=== PATIENT | male | born 1950 | race American Indian/Alaskan Native ===

== ENCOUNTER 2018-06-10 19:19 | Inpatient (IN) | payer MEDICARE ==
[2018-06-10] MEDS ORDERED: NITROSTAT SL ONE ×2 (19:42→19:43)
[2018-06-10] MEDS ORDERED: XYLOCAINE 1% MPF 5 mL INFILTRATI ONE (19:52)
[2018-06-10] MEDS ORDERED: VANCOMYCIN 1,250 MG in NACL 0.9% 500 ML 500 ML IV ONE (19:52)
[2018-06-10] MEDS ORDERED: ROCEPHIN 2,000 MG in NACL 0.9% 50 ML IV STA (19:52)
--- NOTE | 2018-06-10 19:54 | Emergency Department Report ---
ED General Adult HPI - General Chief complaint: Dyspnea/Respdistress Stated complaint: SOB Time Seen by Provider: 06/10/18 19:24 Source: patient, family, RN notes reviewed Limitations: Physical Limitation, Other (patient is a poor historian) - History of Present Illness Initial comments: This is a 67-year-old gentleman who is not known to this provider previously. The patient is brought to the hospital by family for complaint of painless respiratory distress which started today. Apparently, patient was admitted to [facility] in the past month, in [facility], and apparently had a complicated hospital course, including myocardial infarction with stent deployment, currently on brilinta and eliquis, and also had an indwelling PICC line, and was apparently receiving ceftriaxone. We're currently attempting to obtain those medical records. The shortness of breath is constant, does not radiate anywhere, is painless, worsens with physical exertion, and decreases with rest. Patient was started on BiPAP therapy in the emergency room, which appeared to improve his symptoms. He denied headache, neck pain, chest pain, abdominal pain, urinary symptoms, and requested ice chips while on the BiPAP. -: Sudden Severity scale (0 -10): 0 Consistency: constant Improves with: rest Worsens with: movement Associated Symptoms: cough, loss of appetite, shortness of breath, weakness. denies: chest pain - Related Data Home Medications Medication Instructions Recorded Confirmed Last Taken Apixaban [Eliquis] 5 mg PO BID 06/10/18 06/10/18 Unknown Aspirin 1 tab PO DAILY 06/10/18 06/10/18 Unknown Atorvastatin Calcium 80 mg PO DAILY 06/10/18 06/10/18 Unknown Budesoni/Formoterol 80-4.5(Nf) 1 puff IN Q8HR 06/10/18 06/10/18 Unknown [Symbicort 80-4.5 (Nf)] Carvedilol [Coreg] 1 tab PO BID 06/10/18 06/10/18 Unknown Escitalopram [Lexapro] 10 mg PO HS 06/10/18 06/10/18 Unknown Esomeprazole Magnesium [Nexium 1 tab PO DAILY 06/10/18 06/10/18 Unknown 24Hr] Oxymetazoline 0.05% [Afrin] 0 spray NS Q8HR PRN 06/10/18 06/10/18 Unknown Ticagrelor [Brilinta] 90 mg PO BID 06/10/18 06/10/18 Unknown Allergies Allergy/AdvReac Type Severity Reaction Status Date / Time amoxicillin Allergy Unknown Verified 06/10/18 22:43 Penicillins Allergy Unknown Verified 06/10/18 22:43 tetracycline Allergy Unknown Verified 06/10/18 19:32 ED Review of Systems ROS: Stated complaint: SOB Other details as noted in HPI Constitutional: malaise, weakness Eyes: denies: vision change ENT: denies: epistaxis Respiratory: shortness of breath Cardiovascular: dyspnea on exertion Gastrointestinal: denies: vomiting Genitourinary: denies: dysuria Musculoskeletal: denies: arthralgia Skin: denies: lesions Neurological: weakness Psychiatric: anxiety ED Past Medical Hx - Past Medical History Hx CVA: Yes Hx Heart Attack/AMI: Yes - Social History Smoking Status: Former Smoker Substance Use Type: None - Medications Home Medications: Home Medications Medication Instructions Recorded Confirmed Last Taken Type Apixaban [Eliquis] 5 mg PO BID 06/10/18 06/10/18 Unknown History Aspirin 1 tab PO DAILY 06/10/18 06/10/18 Unknown History Atorvastatin Calcium 80 mg PO DAILY 06/10/18 06/10/18 Unknown History Budesoni/Formoterol 80-4.5(Nf) 1 puff IN Q8HR 06/10/18 06/10/18 Unknown History [Symbicort 80-4.5 (Nf)] Carvedilol [Coreg] 1 tab PO BID 06/10/18 06/10/18 Unknown History Escitalopram [Lexapro] 10 mg PO HS 06/10/18 06/10/18 Unknown History Esomeprazole Magnesium [Nexium 1 tab PO DAILY 06/10/18 06/10/18 Unknown History 24Hr] Oxymetazoline 0.05% [Afrin] 0 spray NS Q8HR PRN 06/10/18 06/10/18 Unknown History Ticagrelor [Brilinta] 90 mg PO BID 06/10/18 06/10/18 Unknown History ED Physical Exam - General Limitations: Altered Mental Status General appearance: anxious, in distress - Head Head exam: Present: atraumatic, normocephalic - Eye Eye exam: Present: normal appearance, EOMI. Absent: nystagmus - ENT ENT exam: Present: mucous membranes dry - Neck Neck exam: Present: normal inspection - Respiratory Respiratory exam: Present: respiratory distress, wheezes, rhonchi, accessory muscle use - Cardiovascular Cardiovascular Exam: Present: normal rhythm, tachycardia, normal heart sounds. Absent: systolic murmur, diastolic murmur, rubs, gallop - GI/Abdominal GI/Abdominal exam: Present: soft. Absent: distended, tenderness, guarding, rebound, rigid, pulsatile mass - Rectal Rectal exam: Present: deferred - Extremities Exam Extremities exam: Present: normal inspection, full ROM, pedal edema (1+ edema), other (2+ pulses noted in the bilateral upper, lower extremities. Compartments soft. No long bony tenderness. The pelvis is stable.). Absent: calf tenderness - Back Exam Back exam: Present: normal inspection, full ROM. Absent: paraspinal tenderness, vertebral tenderness - Neurological Exam Neurological exam: Present: alert, other (Extraocular movements intact. Tongue midline. No facial droop. Facial sensation intact to light touch in the V1, V2, V3 distribution bilaterally. 5 and 5 strength in 4 extremities.. Sensation is intact to light touch in 4 extremities.). Absent: motor sensory deficit - Psychiatric Psychiatric exam: Present: anxious - Skin Skin exam: Present: warm, dry, intact, normal color. Absent: rash ED Course Vital Signs 06/10/18 06/10/18 06/10/18 19:32 19:40 19:44 Pulse Rate 124 H 82 Respiratory 24 42 H 53 H Rate Blood Pressure 136/98 142/79 O2 Sat by Pulse 91 90 94 Oximetry 06/10/18 06/10/18 06/10/18 19:45 20:36 20:45 Pulse Rate 136 H 115 H 113 H Respiratory 52 H 24 43 H Rate Blood Pressure 136/84 136/84 136/84 O2 Sat by Pulse 69 L 100 98 Oximetry 06/10/18 06/10/18 06/10/18 21:45 22:01 23:01 Pulse Rate 105 H 110 H 98 H Respiratory 37 H 30 H 34 H Rate Blood Pressure 136/84 136/84 136/84 O2 Sat by Pulse 95 96 97 Oximetry 06/11/18 00:01 Pulse Rate 99 H Respiratory 21 Rate Blood Pressure 136/84 O2 Sat by Pulse 99 Oximetry - Reevaluation(s) Reevaluation #1: 02/19/19 20:21 Differential diagnosis, including but not limited to: Pneumonia, cardiogenic shock, distant heart failure, respiratory failure Assessment and plan: 67-year-old gentleman with respiratory failure requiring positive pressure ventilation. Does not have significant JVD, and is saturating in the mid to high 90s on IPAP therapy. Doubt pulmonary embolus given that he is taking systemic anticoagulation. Attempting to obtain old medical records. Rectal temperature is pending at this time. Patient will be treated empirically with vancomycin and ceftriaxone. He will require admission to the medical service. We will give a trial bolus of 500 mL of normal saline, and then reassess. Recommend admission to the hospital. Reevaluation #2: 06/10/18 20:50 Heart rate 112. Work of breathing appears to be much improved. Laboratory studies pending. Reevaluation #3: 06/10/18 22:11 The patient is reevaluated multiple times while in the department. He appears to be much more comfortable on BiPAP therapy. Tachycardia improving. Laboratory studies indicate lactic acidosis, likely secondary to his increased and profound work of breathing upon initial presentation. He is also found to be hyponatremic, with an elevated proBNP, with an anion gap acidosis. From a global perspective, the patient appears to be volume depleted, I suspect that he may have hypovolemic hyponatremia. His elevated proBNP is reviewed and appreciated, crepitus likely secondary to his underlying pneumonia. I do not clinically suspect an acute congestive heart fire exacerbation at this point in time. The patient also has an elevated troponin, likely secondary to his recent cardiac event, as well as the physiologic strain from his presumed pneumonia. I suspect that the patient has sepsis secondary to pneumonia. Old medical records are obtained from his recent hospital, indicate history of inferior wall myocardial infarction, stent deployment, deployment of aortic balloon pump, ICU placement with ICU delirium, which subsequently resolved, history of stroke, and discharged. Dr Brady to admit to the medical service D/W Dr Kirkpatrick of cardiology, who will follow in consultation. Neither of us believe that heparin is indicated at this point in time, as we do not clinically suspect an acute occlusion of the patient's stents. Repeat EKG is reviewed and appreciated, low voltage, tachycardic, not consistent with ST elevation myocardial infarction. Reevaluation #4: 06/11/18 00:35 Repeat laboratory studies indicate a metabolic improvement. Patient has downtrending troponin and downtrending lactic acid. Patient appears very comfortable on BiPAP therapy. ED Medical Decision Making - Lab Data Result diagrams: 06/10/18 20:24 06/10/18 23:36 Vital Signs 06/10/18 19:32 Pulse Rate 124 H Respiratory 24 Rate Blood Pressure 136/98 O2 Sat by Pulse 91 Oximetry - EKG Data -: EKG Interpreted by Wy Rate: tachycardia - EKG Data When compared to previous EKG there are: previous EKG unavailable 06/10/18 20:23 Tachycardia, extreme right axis deviation, low voltage, motion artifact, appears to be a sinus rhythm, not consistent with ST elevation myocardial infarction. - Radiology Data Radiology results: report reviewed, image reviewed Referring Physician: DHAVAL MUNOZ Patient Name: CASSIDY BRANDON Date of : 1950 Sex: Male Report Date: 2018-06-10 Report Status: Finalized Findings [facility] [address] [place] [address] XRay Report Signed Patient: CASSIDY BRANDON MR#: [id number] : 1950 Acct:[id number] Age/Sex: 67 / M ADM Date: 06/10/18 Loc: ED Attending Dr: Ordering Physician: DHAVAL MUNOZ MD Date of Service: 06/10/18 Procedure(s): XR chest 1V ap Accession Number(s): [id number] cc: DHAVAL MUNOZ MD Fluoro Time In Minutes: FINAL REPORT EXAM: XR CHEST 1V AP HISTORY: sob TECHNIQUE: Chest single AP PRIORS: None. FINDINGS: There is streaky and patchy increased opacity within the right lower lobe distribution. Cardiac silhouette is prominent size. Pulmonary vasculature is unremarkable. No pleural fluid collection seen. No evidence for pneumothorax. IMPRESSION: Right lower lobe infiltrates suspicious for pneumonia Transcribed By: STANLEY Dictated By: MICHAEL ALDANA MD Electronically Authenticated By: MICHAEL ALDANA MD Signed Date/Time: 06/10/182012 Critical Care Time: Yes Critical care time in (mins) excluding proc time.: 35 Critical care attestation.: If time is entered above; I have spent that time in minutes in the direct care of this critically ill patient, excluding procedure time. ED Disposition Clinical Impression: Respiratory failure, History of coronary artery disease Disposition: [id number] OP ADMIT IP TO THIS HOSP Is pt being admited?: Yes Does the pt Need Aspirin: Yes Condition: Critical
[2018-06-10] MEDS ORDERED: VERSED IV NR (20:00)
[2018-06-10] MEDS ORDERED: VANCOMYCIN 1,750 MG in NACL 0.9% 500 ML 500 ML IV ONE (20:00)
--- NOTE | 2018-06-10 20:13 | XRay Report ---
FINAL REPORT EXAM: XR CHEST 1V AP HISTORY: sob TECHNIQUE: Chest single AP PRIORS: None. FINDINGS: There is streaky and patchy increased opacity within the right lower lobe distribution. Cardiac silho uette is prominent size. Pulmonary vasculature is unremarkable. No pleural fluid collection seen. No evidence for pneumothorax. IMPRESSION: Right lower lobe infiltrates suspicious for pneumonia
[2018-06-10] MEDS ORDERED: NACL 0.9% 500 ML 500 ML IV ONE (20:20)
[2018-06-10] MEDS: ROCEPHIN/NS 2 GM/100 ML 2 GM/100 ML BAG IV ONE ×2 (20:30→21:12)
[2018-06-10 20:47] LABS: Basophils # (Auto) 0.1 K/mm3 (0.0-0.1); Basophils % (Auto) 0.8 % (0.0-1.8); Eosinophils # (Auto) 0.1 K/mm3 (0.0-0.4); Eosinophils % (Auto) 1.3 % (0.0-4.3); Hematocrit 34.8 % (35.5-45.6); Hemoglobin 11.5 gm/dl (11.8-15.2); Lymphocytes # (Auto) 2.1 K/mm3 (1.2-5.4); Lymphocytes % (Auto) 21.6 % (13.4-35.0); Mean Corpuscular HGB Conc 33 % (32-34); Mean Corpuscular Volume 98 fl (84-94); Platelet Count 598 K/mm3 (140-440); Red Blood Count 3.55 M/mm3 (3.65-5.03); Red Cell Distribution Width 14.6 % (13.2-15.2)
[2018-06-10] MEDS ORDERED: NACL 0.9% 250ML 250 ML IV ONE (20:51)
[2018-06-10] MEDS ORDERED: NACL 0.9% 1000 ML 2,000 ML IV ONE (20:51)
[2018-06-10 20:54] LABS: INR 1.71 (0.87-1.13)
[2018-06-10 20:55] LABS: Partial Thromboplastin Time 23.2 Sec. (24.2-36.6)
[2018-06-10 21:14] LABS: Albumin 2.9 g/dL (3.9-5); Calcium 8.3 mg/dL (8.4-10.2)
[2018-06-10] MEDS ORDERED: BABY ASPIRIN PO ONE (22:14)
[2018-06-10] MEDS ORDERED: SODIUM CHLORIDE FLUSH SYRINGE 10 ML IV PRN (22:27)
[2018-06-10] MEDS ORDERED: ZOFRAN IV PRN (22:27)
[2018-06-10] MEDS ORDERED: TYLENOL PO PRN (22:27)
[2018-06-10] MEDS ORDERED: D50W (25GM) Syringe IV PRN (22:27)
[2018-06-10 22:32] LABS: Chol/HDL Ratio 4.84 %
--- NOTE | 2018-06-10 22:40 | History and Physical Report ---
History of Present Illness Date of examination: 06/10/18 History of present illness: 67-year-old male history of hypertention, diabetes, coronary artery disease, CVA comes emergency room with complaints of generalized weakness and shortness of breath. The patient was discharged from the hospital on Saturday in [place], he was noted to have non-STEMI, status post stent, CVA while in the hospital and staph bacteremia. He also has a history of cardiomyopathy, EF of 35%. Denies chest pain Review of systems Constitutional: no weight loss, chills, fever Ears, eyes, nose, mouth and throat: no nasal congestion, no nasal discharge, no sinus pressure, no vision change, no red eye. Neck: No neck pain or rigidity. Cardiovascular: no palpitations, chest pain Respiratory: no cough Gastrointestinal: no hematochezia, abdominal pain Genitourinary : no frequency , no hematuria Musculoskeletal: no joint swelling or muscle ache Integumentary: no rash, no pruritis Neurological: no parathesias, no focal weakness Endocrine: no cold or heat intolerance, no polyuria or polydipsia Hematologic/Lymphatic: no easy bruising, no easy bleeding, no gland swelling Allergic/Immunologic: no urticaria, no angioedema. PAST MEDICAL HISTORY:hypertention, diabetes, coronary artery disease, CVA, cardiomyopathy, EF of 35% PAST SURGICAL HISTORY: Hernia repair SOCIAL HISTORY: Denies alcohol, drugs, tobacco FAMILY HISTORY: Hypertension Medications and Allergies Allergies Allergy/AdvReac Type Severity Reaction Status Date / Time amoxicillin Allergy Unknown Verified 06/10/18 22:43 Penicillins Allergy Unknown Verified 06/10/18 22:43 tetracycline Allergy Unknown Verified 06/10/18 19:32 Home Medications Medication Instructions Recorded Confirmed Last Taken Type Apixaban [Eliquis] 5 mg PO BID 06/10/18 06/10/18 Unknown History Aspirin 1 tab PO DAILY 06/10/18 06/10/18 Unknown History Atorvastatin Calcium 80 mg PO DAILY 06/10/18 06/10/18 Unknown History Budesoni/Formoterol 80-4.5(Nf) 1 puff IN Q8HR 06/10/18 06/10/18 Unknown History [Symbicort 80-4.5 (Nf)] Carvedilol [Coreg] 1 tab PO BID 06/10/18 06/10/18 Unknown History Escitalopram [Lexapro] 10 mg PO HS 06/10/18 06/10/18 Unknown History Esomeprazole Magnesium [Nexium 1 tab PO DAILY 06/10/18 06/10/18 Unknown History 24Hr] Oxymetazoline 0.05% [Afrin] 0 spray NS Q8HR PRN 06/10/18 06/10/18 Unknown History Ticagrelor [Brilinta] 90 mg PO BID 06/10/18 06/10/18 Unknown History Active Meds: Active Medications Acetaminophen (Tylenol) 650 mg PO Q4H PRN PRN Reason: Pain MILD(1-3)/Fever >100.5/ESPOSITO Dextrose (D50w (25gm) Syringe) 50 ml IV PRN PRN PRN Reason: Hypoglycemia Aztreonam (Azactam/Ns 1 Gm/50 Ml) 1 gm in 50 mls @ 50 mls/hr IV Q8HR LILIA; Protocol Insulin Human Lispro (Humalog) 0 unit SUB-Q ACHS LILIA; Protocol Midazolam HCl (Versed) 2 mg IV ONCE NR Stop: 06/11/18 19:59 Ondansetron HCl (Zofran) 4 mg IV Q8H PRN PRN Reason: Nausea And Vomiting Sodium Chloride (Sodium Chloride Flush Syringe 10 Ml) 10 ml IV BID LILIA Sodium Chloride (Sodium Chloride Flush Syringe 10 Ml) 10 ml IV PRN PRN PRN Reason: LINE FLUSH Exam - Physical Exam Narrative exam: General Apperance: The patient lying in bed, breathing comfortable HEENT: Normocephalic, atraumatic. Pupils equally round and reactive to light, EOMI, no sclericterus or JVD or thyromegaly or nodule. , no carotid bruit, mucous membranes moist, no exudate or erythema Heart: S1-S2, regular is rhythm Lungs: Clear to auscultation bilaterally, breathing comfortable Abdomen: Positive bowel sounds, soft, nontender, nondistended, no organomegaly Extremities: No edema cyanosis clubbing Skin: no rash, nodule, warm and dry Neuro: cranial nerves 2-12 intact, speech is fluent, motor/sensory intact - Constitutional Vitals: Temp Pulse Resp BP Pulse Ox 105 H 37 H 136/84 95 06/10/18 21:45 06/10/18 21:45 06/10/18 21:45 06/10/18 21:45 Results - Labs CBC & Chem 7: 06/11/18 04:11 06/11/18 04:11 Labs: Abnormal lab results 06/10/18 06/10/18 06/10/18 Range/Units 20:24 20:24 20:24 RBC 3.55 L (3.65-5.03) M/mm3 Hgb 11.5 L (11.8-15.2) gm/dl Hct 34.8 L (35.5-45.6) % MCV 98 H (84-94) fl Plt Count 598 H (140-440) K/mm3 [place] % (Auto) 10.0 H (0.0-7.3) % [place] # 1.0 H (0.0-0.8) K/mm3 PT (12.2-14.9) Sec. INR (0.87-1.13) APTT (24.2-36.6) Sec. POC ABG pH (7.35-7.45) POC ABG pCO2 (35-45) POC ABG pO2 (80-105) Sodium 129 L (137-145) mmol/L Chloride 91.6 L (98-107) mmol/L Carbon Dioxide 13 L (22-30) mmol/L Glucose 256 H (75-100) mg/dL Lactic Acid (0.7-2.0) mmol/L Calcium 8.3 L (8.4-10.2) mg/dL Alkaline Phosphatase 152 H (35-129) units/L Troponin T 3.050 H* (0.00-0.029) ng/mL NT-Pro-B Natriuret Pep 12981 H (0-900) pg/mL Albumin 2.9 L (3.9-5) g/dL HDL Cholesterol 19 L (40-59) mg/dL 06/10/18 06/10/18 06/10/18 Range/Units 20:24 20:24 22:28 RBC (3.65-5.03) M/mm3 Hgb (11.8-15.2) gm/dl Hct (35.5-45.6) % MCV (84-94) fl Plt Count (140-440) K/mm3 [place] % (Auto) (0.0-7.3) % [place] # (0.0-0.8) K/mm3 PT 21.2 H (12.2-14.9) Sec. INR 1.71 H (0.87-1.13) APTT 23.2 L (24.2-36.6) Sec. POC ABG pH 7.342 L (7.35-7.45) POC ABG pCO2 29.1 L (35-45) POC ABG pO2 107 H (80-105) Sodium (137-145) mmol/L Chloride (98-107) mmol/L Carbon Dioxide (22-30) mmol/L Glucose (75-100) mg/dL Lactic Acid 8.70 H* (0.7-2.0) mmol/L Calcium (8.4-10.2) mg/dL Alkaline Phosphatase (35-129) units/L Troponin T (0.00-0.029) ng/mL NT-Pro-B Natriuret Pep (0-900) pg/mL Albumin (3.9-5) g/dL HDL Cholesterol (40-59) mg/dL - Imaging and Cardiology Chest x-ray: report reviewed Assessment and Plan Assessment Acute respiratory distress HCAP Coronary artery disease, status post recent stent with elevated troponin Hypertension Diabetes History of CVA cardiomyopathy, EF of 35% Plan Admit to medicine Start IV antibiotic, follow cultures, continue BiPAP Check cardiac enzymes, cardiology was consulted to see the patient in the emergency room Will hold further fluids for now given his cardiomyopathy Check fingersticks and initiate insulin sliding scale DVT prophylaxis
[2018-06-10] MEDS ORDERED: AZACTAM/NS 1 GM/50 ML 1 GM/50 ML VIAL IV SCH (23:00)
[2018-06-10 23:19] LABS: Creatine Kinase MB 6.1 ng/mL (0.0-4.0)
[2018-06-10 23:20] LABS: BUN/Creatinine Ratio 13; Blood Urea Nitrogen 13 mg/dL (9-20); Calcium 7.8 mg/dL (8.4-10.2); Hemolysis Index 8
[2018-06-10] MEDS: AZACTAM/NS 1 GM/50 ML 1 GM/50 ML VIAL IV SCH (23:22)
[2018-06-11 00:18] LABS: BUN/Creatinine Ratio 13; Blood Urea Nitrogen 12 mg/dL (9-20); Calcium 7.6 mg/dL (8.4-10.2); Hemolysis Index 16
[2018-06-11 04:27] LABS: Basophils % (Auto) 0.3 % (0.0-1.8); Eosinophils # (Auto) 0.1 K/mm3 (0.0-0.4); Eosinophils % (Auto) 0.9 % (0.0-4.3); Hematocrit 30.6 % (35.5-45.6); Hemoglobin 10.3 gm/dl (11.8-15.2); Lymphocytes # (Auto) 1.6 K/mm3 (1.2-5.4); Lymphocytes % (Auto) 16.8 % (13.4-35.0); Mean Corpuscular HGB Conc 34 % (32-34); Mean Corpuscular Volume 96 fl (84-94); Monocytes # (Auto) 0.9 K/mm3 (0.0-0.8); Monocytes % (Auto) 9.8 % (0.0-7.3); Platelet Count 578 K/mm3 (140-440); Red Blood Count 3.21 M/mm3 (3.65-5.03); Red Cell Distribution Width 14.3 % (13.2-15.2)
[2018-06-11 04:43] LABS: Creatine Kinase MB 6.8 ng/mL (0.0-4.0)
[2018-06-11 04:45] LABS: BUN/Creatinine Ratio 12; Blood Urea Nitrogen 12 mg/dL (9-20); Calcium 8.1 mg/dL (8.4-10.2); Hemolysis Index 2
[2018-06-11] MEDS: AZACTAM/NS 1 GM/50 ML 1 GM/50 ML VIAL IV SCH ×3 (05:45→22:17)
[2018-06-11] MEDS ORDERED: FORMOTEROL IN SCH (06:00)
[2018-06-11] MEDS ORDERED: BUDESONI IN SCH (06:00)
[2018-06-11] MEDS ORDERED: PULMICORT IH ONE ×2 (07:32→07:35)
[2018-06-11] MEDS ORDERED: BROVANA NEBU IH ONE (07:32)
[2018-06-11] MEDS: PULMICORT IH SCH ×2 (07:40→23:02)
[2018-06-11] MEDS: BROVANA NEBU IH SCH ×2 (07:42→23:02)
[2018-06-11] MEDS: HumaLOG SUB-Q SCH ×4 (09:20→21:48)
--- NOTE | 2018-06-11 09:31 | Progress Note ---
Assessment and Plan Assessment and plan: 67-year-old male history of hypertention, diabetes, coronary artery disease, CVA comes emergency room with complaints of generalized weakness and shortness of breath. The patient was discharged from the hospital on Saturday in [place], he was noted to have non-STEMI, status post stent, CVA while in the hospital and staph bacteremia. He also has a history of cardiomyopathy, EF of 35%. Review of records from outside facility. Patient was discharged 06/05/18 following 7 days stay in hospital in [place] where he was treated for * STEMI with ballon pump removed on 05/31/18, Thrombectomy to to occluded obtuse marginal branches in the distal LAD which was cut off due to distal embolization. * ICU psychosis * CVA with MRI showing scattered areas of subacute to early chronic infarct in the mid to posterior MCA. Negative Carotid doppler * Placed on Apixaban 5mg BID, aspirin 81mg daily, Atorvastatin 80mg daily, Coreg 3.125mg po BID, ceftriaxaone 2g po daily ending 06/16/17 for staph areus bactermia, insulin, Brilianta 90mg PO BID * MARTHA not started due to Hypotension Acute respiratory distress HCAP Secondary to staph areus Acute on chronic Systolic Heart failure Coronary artery disease, status post recent stent with elevated troponin Hypertension Diabetes Mellulits Ischemic Cardiomyopathy Emphysema Recent STEMI History of CVA Cardiomyopathy, EF of 35% Plan Continue supportive Start IV antibiotic, follow cultures, continue BiPAP PICC line to manage abx as noted above Check cardiac enzymes, cardiology was consulted to see the patient in the emergency room Will hold further fluids for now given his cardiomyopathy Check fingersticks and initiate insulin sliding scale Lasix per Cardiology management Heart failure protocol DVT prophylaxis History Interval history: Patient seen and examined, still with shortness of breath. Discussed with family Hospitalist Physical - Physical exam Narrative exam: General Appearance: The patient lying in bed, breathing comfortable HEENT: Normocephalic, atraumatic. Pupils equally round and reactive to light, EOMI, no sclericterus or JVD or thyromegaly or nodule. no carotid bruit, mucous membranes moist, no exudate or erythema Heart: S1-S2, regular is rhythm Lungs: diminished to auscultation bilaterally, breathing comfortable Abdomen: Positive bowel sounds, soft, nontender, nondistended, no organomegaly Extremities:trace edema, cyanosis clubbing Skin: no rash, nodule, warm and dry Neuro: cranial nerves 2-12 intact, speech is fluent, motor/sensory intact - Constitutional Vitals: Temp Pulse Resp BP Pulse Ox 88 29 H 136/84 98 06/11/18 06:01 06/11/18 06:01 06/11/18 06:01 06/11/18 06:01 Results - Labs CBC & Chem 7: 06/11/18 04:11 06/11/18 04:11 Labs: Laboratory Last Values WBC 9.5 K/mm3 (4.5-11.0) 06/11/18 04:11 RBC 3.21 M/mm3 (3.65-5.03) L 06/11/18 04:11 Hgb 10.3 gm/dl (11.8-15.2) L 06/11/18 04:11 Hct 30.6 % (35.5-45.6) L 06/11/18 04:11 MCV 96 fl (84-94) H 06/11/18 04:11 MCH 32 pg (28-32) 06/11/18 04:11 MCHC 34 % (32-34) 06/11/18 04:11 RDW 14.3 % (13.2-15.2) 06/11/18 04:11 Plt Count 578 K/mm3 (140-440) H 06/11/18 04:11 Lymph % (Auto) 16.8 % (13.4-35.0) 06/11/18 04:11 [place] % (Auto) 9.8 % (0.0-7.3) H 06/11/18 04:11 Eos % (Auto) 0.9 % (0.0-4.3) 06/11/18 04:11 Baso % (Auto) 0.3 % (0.0-1.8) 06/11/18 04:11 Lymph # 1.6 K/mm3 (1.2-5.4) 06/11/18 04:11 [place] # 0.9 K/mm3 (0.0-0.8) H 06/11/18 04:11 Eos # 0.1 K/mm3 (0.0-0.4) 06/11/18 04:11 Baso # 0.0 K/mm3 (0.0-0.1) 06/11/18 04:11 Seg Neutrophils % 72.2 % (40.0-70.0) H 06/11/18 04:11 Seg Neutrophils # 6.9 K/mm3 (1.8-7.7) 06/11/18 04:11 PT 21.2 Sec. (12.2-14.9) H 06/10/18 20:24 INR 1.71 (0.87-1.13) H 06/10/18 20:24 APTT 23.2 Sec. (24.2-36.6) L 06/10/18 20:24 POC ABG pH 7.342 (7.35-7.45) L 06/10/18 22:28 POC ABG pCO2 29.1 (35-45) L 06/10/18 22:28 POC ABG pO2 107 (80-105) H 06/10/18 22:28 POC ABG HCO3 15.8 06/10/18 22:28 POC ABG Total CO2 17 06/10/18 22:28 POC ABG O2 Sat 98 06/10/18 22:28 POC ABG Base Excess -10 06/10/18 22:28 FiO2 50 % 06/10/18 22:28 Sodium 134 mmol/L (137-145) L 06/11/18 04:11 Potassium 4.9 mmol/L (3.6-5.0) 06/11/18 04:11 Chloride 101.0 mmol/L (98-107) 06/11/18 04:11 Carbon Dioxide 19 mmol/L (22-30) L 06/11/18 04:11 Anion Gap 19 mmol/L 06/11/18 04:11 BUN 12 mg/dL (9-20) 06/11/18 04:11 Creatinine 1.0 mg/dL (0.8-1.5) 06/11/18 04:11 Estimated GFR > 60 ml/min 06/11/18 04:11 BUN/Creatinine Ratio 12 % 06/11/18 04:11 Glucose 130 mg/dL (75-100) H 06/11/18 04:11 POC Glucose 116 (70-105) H 06/11/18 08:33 Lactic Acid 1.80 mmol/L (0.7-2.0) 06/10/18 23:36 Calcium 8.1 mg/dL (8.4-10.2) L 06/11/18 04:11 Total Bilirubin 0.70 mg/dL (0.1-1.2) 06/10/18 20:24 AST 34 units/L (5-40) 06/10/18 20:24 ALT 32 units/L (7-56) 06/10/18 20:24 Alkaline Phosphatase 152 units/L (35-129) H 06/10/18 20:24 Total Creatine Kinase 283 units/L (55-170) H 06/11/18 04:11 CK-MB (CK-2) 6.8 ng/mL (0.0-4.0) H 06/11/18 04:11 CK-MB (CK-2) Rel Index 2.4 (0-4) 06/11/18 04:11 Troponin T 1.760 ng/mL (0.00-0.029) H* 06/11/18 04:11 NT-Pro-B Natriuret Pep 34678 pg/mL (0-900) H 06/10/18 20:24 Total Protein 7.2 g/dL (6.3-8.2) 06/10/18 20:24 Albumin 2.9 g/dL (3.9-5) L 06/10/18 20:24 Albumin/Globulin Ratio 0.7 % 06/10/18 20:24 Triglycerides 95 mg/dL (2-149) 06/10/18 20:24 Cholesterol 92 mg/dL (50-199) 06/10/18 20:24 LDL Cholesterol Direct 54 mg/dL (50-130) 06/10/18 20:24 HDL Cholesterol 19 mg/dL (40-59) L 06/10/18 20:24 Cholesterol/HDL Ratio 4.84 % 06/10/18 20:24 Lipase 37 units/L (13-60) 06/10/18 20:24 - Imaging and Cardiology Chest x-ray: image reviewed (pnuemonia)
[2018-06-11] MEDS ORDERED: ESOMEPRAZOLE MAGNESIUM PO SCH (10:00)
[2018-06-11] MEDS ORDERED: BRILINTA PO SCH (10:00)
[2018-06-11] MEDS ORDERED: APIXABAN 5 MG PO SCH (10:00)
[2018-06-11] MEDS ORDERED: NON-FORMULARY (Atorvastatin Calcium [Atorvastatin Calcium] 80 MG) PO SCH (10:00)
--- NOTE | 2018-06-11 11:27 | Consultation ---
History of Present Illness Consult date: 06/11/18 Requesting physician: DHAVAL MUNOZ Consult reason: abnormal cardiac enzymes History of present illness: The pt is a 67-year-old male with a past medical history of hypertention, diabetes, CAD s/p STEMI with PCI on 05/29/2018, ICMP EF 35-40%, emphysema, CVA, staph aureus bacteremia, prior tobacco use. He recently relocated to the area from [place]. He presented with complaints of generalized weakness and shortness of breath. He denies any chest pain, palpitations, n/v, diaphoresis, dizziness or syncope. The patient was discharged from a hospital in [place] on 06/05/2018 - per the discharge summary from [facility], he was admitted at that time for STEMI on 05/29 and subsequently underwent thrombectomy to two occluded obtuse marginal branches in the distal LAD and distal LAD was cut off due to distal embolizations, IABP was placed and later removed on 05/31, he subsequently developed ICU psychosis and CVA, MRI brain showed scattered areas of subacute to early chronic infarct in mid to posterior MCA distribution, he was also noted to have staph aureus bacteremia. He was discharged home on DAPT with ASA and brilinta in addition to Eliquis 5mg BID and IV abx via PICC. Past History Past Medical History: acute [place], CAD, diabetes, heart failure, hypertension, stroke, other (emphysema) Social history: lives with family, smoking (former) Medications and Allergies Allergies Allergy/AdvReac Type Severity Reaction Status Date / Time amoxicillin Allergy Unknown Verified 06/10/18 22:43 Penicillins Allergy Unknown Verified 06/10/18 22:43 tetracycline Allergy Unknown Verified 06/10/18 19:32 Home Medications Medication Instructions Recorded Confirmed Last Taken Type Apixaban [Eliquis] 5 mg PO BID 06/10/18 06/10/18 Unknown History Aspirin 1 tab PO DAILY 06/10/18 06/10/18 Unknown History Atorvastatin Calcium 80 mg PO DAILY 06/10/18 06/10/18 Unknown History Budesoni/Formoterol 80-4.5(Nf) 1 puff IN Q8HR 06/10/18 06/10/18 Unknown History [Symbicort 80-4.5 (Nf)] Carvedilol [Coreg] 1 tab PO BID 06/10/18 06/10/18 Unknown History Escitalopram [Lexapro] 10 mg PO HS 06/10/18 06/10/18 Unknown History Esomeprazole Magnesium [Nexium 1 tab PO DAILY 06/10/18 06/10/18 Unknown History 24Hr] Oxymetazoline 0.05% [Afrin] 0 spray NS Q8HR PRN 06/10/18 06/10/18 Unknown History Ticagrelor [Brilinta] 90 mg PO BID 06/10/18 06/10/18 Unknown History Active Meds: Active Medications Acetaminophen (Tylenol) 650 mg PO Q4H PRN PRN Reason: Pain MILD(1-3)/Fever >100.5/ESPOSITO Apixaban (Eliquis) 5 mg PO BID [facility] Arformoterol Tartrate (Brovana Nebu) 15 mcg IH Q12HRT [facility] Last Admin: 06/11/18 07:42 Dose: 15 mcg Documented by: Aspirin (Baby Aspirin) 81 mg PO DAILY [facility] Atorvastatin Calcium (Lipitor) 80 mg PO DAILY [facility] Budesonide (Pulmicort) 0.5 mg IH Q12HRT [facility] Last Admin: 06/11/18 07:40 Dose: 0.5 mg Documented by: Carvedilol (Coreg) 3.125 mg PO BID [facility] Clopidogrel Bisulfate (Plavix) 75 mg PO QDAY [facility] Clopidogrel Bisulfate (Plavix) 300 mg PO ONCE ONE Stop: 06/11/18 11:31 Dextrose (D50w (25gm) Syringe) 50 ml IV PRN PRN PRN Reason: Hypoglycemia Escitalopram Oxalate (Lexapro) 10 mg PO HS [facility] Aztreonam (Azactam/Ns 1 Gm/50 Ml) 1 gm in 50 mls @ 50 mls/hr IV Q8HR [facility]; Protocol Last Admin: 06/11/18 05:45 Dose: 50 mls/hr Documented by: Insulin Human Lispro (Humalog) 0 unit SUB-Q ACHS [facility]; Protocol Last Admin: 06/11/18 09:20 Dose: Not Given Documented by: Midazolam HCl (Versed) 2 mg IV ONCE NR Stop: 06/11/18 19:59 Ondansetron HCl (Zofran) 4 mg IV Q8H PRN PRN Reason: Nausea And Vomiting Pantoprazole Sodium (Protonix) 20 mg PO QDAY [facility] Sodium Chloride (Sodium Chloride Flush Syringe 10 Ml) 10 ml IV BID [facility] Sodium Chloride (Sodium Chloride Flush Syringe 10 Ml) 10 ml IV PRN PRN PRN Reason: LINE FLUSH Review of Systems Constitutional: no weight loss, no weight gain, no fever, no chills, no sweats Ears, nose, mouth and throat: no ear pain, no nose pain, no sinus pressure, no sinus pain Cardiovascular: shortness of breath, dyspnea on exertion, paroxysmal nocturnal dyspnea, no chest pain, no palpitations, no rapid/irregular heart beat, no edema, no syncope, no lightheadedness, no high blood pressure, no leg edema Respiratory: shortness of breath, dyspnea on exertion, no cough, no congestion, no wheezing, no pain on inspiration Gastrointestinal: no abdominal pain, no nausea, no vomiting, no diarrhea, no constipation Genitourinary Male: no dysuria, no hematuria, no flank pain, no discharge, no urinary frequency, no urinary hesitancy Musculoskeletal: no neck stiffness, no neck pain, no shooting arm pain, no arm numbness/tingling, no low back pain, no shooting leg pain Integumentary: no rash, no pruritis, no redness, no sores, no wounds Neurological: no head injury, no paralysis, no weakness, no parathesias, no numbness, no tingling, no seizures, no syncope Psychiatric: no anxiety Endocrine: no cold intolerance, no heat intolerance Hematologic/Lymphatic: no easy bruising, no easy bleeding Allergic/Immunologic: no urticaria Physical Examination Vital Signs Pulse Resp BP Pulse Ox 124 H 24 136/98 91 06/10/18 19:32 06/10/18 19:32 06/10/18 19:32 06/10/18 19:32 General appearance: no acute distress HEENT: Positive: PERRL, Normocephaly, Mucus Membranes Moist Neck: Positive: neck supple, trachea midline, JVD/HJR Cardiac: Positive: Reg Rate and Rhythm, S1/S2 Lungs: Positive: Decreased Breath Sounds Neuro: Positive: Grossly Intact Abdomen: Positive: Soft. Negative: Tender Skin: Negative: Rash, Wound Musculoskeletal: No Pain Extremities: Absent: edema Results 06/11/18 04:11 06/11/18 04:11 Cardiac Enzymes 06/10/18 06/10/18 06/11/18 Range/Units 20:24 22:27 04:11 AST 34 (5-40) units/L CK-MB (CK-2) 6.1 H 6.8 H (0.0-4.0) ng/mL Coagulation 06/10/18 Range/Units 20:24 PT 21.2 H (12.2-14.9) Sec. INR 1.71 H (0.87-1.13) APTT 23.2 L (24.2-36.6) Sec. Lipids 06/10/18 Range/Units 20:24 Triglycerides 95 (2-149) mg/dL Cholesterol 92 (50-199) mg/dL HDL Cholesterol 19 L (40-59) mg/dL Cholesterol/HDL Ratio 4.84 % CBC 06/10/18 06/11/18 Range/Units 20:24 04:11 WBC 9.6 9.5 (4.5-11.0) K/mm3 RBC 3.55 L 3.21 L (3.65-5.03) M/mm3 Hgb 11.5 L 10.3 L (11.8-15.2) gm/dl Hct 34.8 L 30.6 L (35.5-45.6) % Plt Count 598 H 578 H (140-440) K/mm3 Lymph # 2.1 1.6 (1.2-5.4) K/mm3 [place] # 1.0 H 0.9 H (0.0-0.8) K/mm3 Eos # 0.1 0.1 (0.0-0.4) K/mm3 Baso # 0.1 0.0 (0.0-0.1) K/mm3 Comprehensive Metabolic Panel 06/10/18 06/10/18 06/10/18 Range/Units 20:24 22:27 23:36 Sodium 129 L 130 L 131 L (137-145) mmol/L Potassium 4.9 4.3 4.1 (3.6-5.0) mmol/L Chloride 91.6 L 98.2 99.8 (98-107) mmol/L Carbon Dioxide 13 L 16 L 17 L (22-30) mmol/L BUN 12 13 12 (9-20) mg/dL Creatinine 1.4 1.0 0.9 (0.8-1.5) mg/dL Glucose 256 H 146 H 127 H (75-100) mg/dL Calcium 8.3 L 7.8 L 7.6 L (8.4-10.2) mg/dL AST 34 (5-40) units/L ALT 32 (7-56) units/L Alkaline Phosphatase 152 H (35-129) units/L Total Protein 7.2 (6.3-8.2) g/dL Albumin 2.9 L (3.9-5) g/dL 06/11/18 Range/Units 04:11 Sodium 134 L (137-145) mmol/L Potassium 4.9 (3.6-5.0) mmol/L Chloride 101.0 (98-107) mmol/L Carbon Dioxide 19 L (22-30) mmol/L BUN 12 (9-20) mg/dL Creatinine 1.0 (0.8-1.5) mg/dL Glucose 130 H (75-100) mg/dL Calcium 8.1 L (8.4-10.2) mg/dL AST (5-40) units/L ALT (7-56) units/L Alkaline Phosphatase (35-129) units/L Total Protein (6.3-8.2) g/dL Albumin (3.9-5) g/dL - Imaging and Cardiology Echo: pending Cardiac cath: report reviewed (STEMI on 05/29 and subsequently underwent thrombectomy to two occluded obtuse marginal branches in the distal LAD and distal LAD was cut off due to distal embolizations, IABP was placed and later removed on 05/31) EKG: report reviewed, image reviewed EKG interpretations - Telemetry EKG Rhythm: Sinus Rhythm - EKG Sinus rhythms and dysrhythmias: sinus rhythm Myocardial infarction: lateral FL (old age or in Assessment and Plan Pt presented with SOB. S/p recent STEMI with PCI on 05/29/2018 in [place]. He has known ICMP, EF 35-40%. He denies chest pain, ECG with no acute ischemic changes. Suspect troponin elevation is secondary to recent STEMI, cont to trend and repeat ECG in AM. Will convert Brilinta to Plavix and cont ASA 81 and Eliquis. Initiate treatment for HF, cont GDMT as tolerated. F/u echo. The patient has been seen in conjunction with Dr. Oconnor who agrees with the assessment and plan of care. - Patient Problems (1) Respiratory failure Current Visit: Yes Status: Acute (2) Acute on chronic HFrEF (heart failure with reduced ejection fraction) Current Visit: Yes Status: Acute (3) Ischemic cardiomyopathy Current Visit: Yes Status: Chronic (4) Elevated troponin Current Visit: Yes Status: Acute (5) Recent ST elevation myocardial infarction (STEMI) Current Visit: Yes Status: Acute (6) CAD (coronary artery disease) Current Visit: Yes Status: Chronic (7) Stented coronary artery Current Visit: Yes Status: Chronic (8) HTN (hypertension) Current Visit: Yes Status: Chronic (9) Diabetes Current Visit: Yes Status: Chronic (10) History of CVA (cerebrovascular accident) Current Visit: Yes Status: Chronic (11) Emphysema of lung Current Visit: Yes Status: Chronic (12) History of bacteremia Current Visit: Yes Status: Chronic
[2018-06-11] MEDS ORDERED: PLAVIX PO ONE (11:30)
[2018-06-11] MEDS ORDERED: LASIX IV SCH (12:00)
[2018-06-11] MEDS: BABY ASPIRIN PO SCH (13:38)
[2018-06-11] MEDS: PROTONIX PO SCH (13:39)
[2018-06-11] MEDS: ELIQUIS PO SCH ×2 (13:39→21:46)
[2018-06-11] MEDS: COREG PO SCH (13:40)
[2018-06-11] MEDS: SODIUM CHLORIDE FLUSH SYRINGE 10 ML IV SCH ×2 (13:40→21:47)
[2018-06-11] MEDS ORDERED: LASIX IV ONE (20:00)
[2018-06-11] MEDS: LEXAPRO PO SCH (21:46)
[2018-06-12] MEDS: COREG PO SCH ×3 (00:07→21:35)
[2018-06-12] MEDS: AZACTAM/NS 1 GM/50 ML 1 GM/50 ML VIAL IV SCH ×3 (06:08→21:34)
[2018-06-12 06:32] LABS: BUN/Creatinine Ratio 11; Blood Urea Nitrogen 9 mg/dL (9-20); Calcium 8.2 mg/dL (8.4-10.2); Hemolysis Index 0
[2018-06-12] MEDS: HumaLOG SUB-Q SCH ×4 (08:36→21:38)
[2018-06-12] MEDS: BROVANA NEBU IH SCH ×2 (08:52→20:00)
[2018-06-12] MEDS: PULMICORT IH SCH ×2 (08:52→20:00)
[2018-06-12] MEDS ORDERED: PLAVIX PO SCH (10:00)
[2018-06-12] MEDS ORDERED: LASIX IV SCH (10:00)
[2018-06-12] MEDS: PROTONIX PO SCH (10:10)
[2018-06-12] MEDS: BABY ASPIRIN PO SCH (10:22)
[2018-06-12] MEDS: ELIQUIS PO SCH (10:22)
--- NOTE | 2018-06-12 11:24 | Progress Note ---
Assessment and Plan acute respiratory failure acute shf cad hyperlipidemia copd plerual effusion nstemi type 2 rec: reviewed chart from [place], unclear reason for eliquis, pt was on for one month, will cont dapt, with asa and birlinita and stop eliquis and discuss with son and patient about the stopping eliquis. pt heart rate elevated will add dig and cont coreg and no sidra or arb secondary to low bp, in view of low bp start lasix 20mg bid iv and may consider thoracentsis. Subjective Date of service: 06/12/18 Principal diagnosis: sob Interval history: pt having some pnd but sob has improved Objective Vital Signs Temp Pulse Pulse Pulse Resp Resp Resp 06/12/18 08:59 06/12/18 08:57 105 H 18 06/12/18 07:36 98.4 F 85 32 H 06/12/18 04:30 99.0 F 97 H 17 06/11/18 23:37 97.6 F 116 H 17 06/11/18 23:12 100 H 18 06/11/18 23:09 100 H 18 06/11/18 23:02 106 H 18 06/11/18 20:48 118 H 06/11/18 19:11 98.9 F 118 H 17 06/11/18 17:18 99.1 F 110 H 16 BP Pulse Ox 06/12/18 08:59 98 06/12/18 08:57 06/12/18 07:36 98/63 95 06/12/18 04:30 103/67 89 06/11/18 23:37 99/61 93 06/11/18 23:12 98 06/11/18 23:09 98 06/11/18 23:02 06/11/18 20:48 06/11/18 19:11 102/65 93 06/11/18 17:18 100/63 94 - Physical Examination General: No Apparent Distress HEENT: Positive: PERRL, Normocephaly, Mucus Membranes Moist Neck: Positive: neck supple, trachea midline, JVD/HJR Cardiac: Positive: Tachycardia Lungs: Positive: Decreased Breath Sounds Neuro: Positive: Grossly Intact Abdomen: Positive: Soft. Negative: Tender Skin: Negative: Rash, Wound Musculoskeletal: No Pain Extremities: Absent: edema - Labs and Meds Comprehensive Metabolic Panel 06/12/18 Range/Units 05:30 Sodium 139 (137-145) mmol/L Potassium 3.6 D (3.6-5.0) mmol/L Chloride 103.0 (98-107) mmol/L Carbon Dioxide 23 (22-30) mmol/L BUN 9 (9-20) mg/dL Creatinine 0.8 (0.8-1.5) mg/dL Glucose 132 H (75-100) mg/dL Calcium 8.2 L (8.4-10.2) mg/dL - Imaging and Cardiology EKG: report reviewed, image reviewed Echo: pending, report reviewed (ef 35% lateral wall akineisis, moderate mr and moderate tr rvsp 55-60 mm hg) Cardiac cath: report reviewed (STEMI on 05/29 and subsequently underwent thrombectomy to two occluded obtuse marginal branches in the distal LAD and d istal LAD was cut off due to distal embolizations, IABP was placed and later removed on 05/31) - Telemetry EKG Rhythm: Sinus Tachycardia - EKG Sinus rhythms and dysrhythmias: sinus rhythm Myocardial infarction: lateral [place] (old age or in
[2018-06-12] MEDS: LANOXIN IV SCH ×2 (13:26→17:03)
[2018-06-12] MEDS: SODIUM CHLORIDE FLUSH SYRINGE 10 ML IV SCH ×2 (13:30→21:36)
[2018-06-12] MEDS: LASIX PO SCH (17:04)
--- NOTE | 2018-06-12 17:20 | Progress Note ---
Assessment and Plan Assessment and plan: 67-year-old male history of hypertention, diabetes, coronary artery disease, CVA comes emergency room with complaints of generalized weakness and shortness of breath. The patient was discharged from the hospital on Saturday in [place], he was noted to have non-STEMI, status post stent, CVA while in the hospital and staph bacteremia. He also has a history of cardiomyopathy, EF of 35%. Review of records from outside facility. Patient was discharged 06/05/18 following 7 days stay in hospital in [place] where he was treated for * STEMI with ballon pump removed on 05/31/18, Thrombectomy to to occluded obtuse marginal branches in the distal LAD which was cut off due to distal embolization. * ICU psychosis * CVA with MRI showing scattered areas of subacute to early chronic infarct in the mid to posterior MCA. Negative Carotid doppler * Placed on Apixaban 5mg BID, aspirin 81mg daily, Atorvastatin 80mg daily, Coreg 3.125mg po BID, ceftriaxaone 2g po daily ending 06/16/17 for staph areus bactermia, insulin, Brilianta 90mg PO BID * MARTHA not started due to Hypotension Acute respiratory distress HCAP Secondary to staph areus Acute on chronic Systolic Heart failure Coronary artery disease, status post recent stent with elevated troponin Hypertension Diabetes Mellulits Ischemic Cardiomyopathy Pleural effusion Emphysema Recent STEMI History of CVA Cardiomyopathy, EF of 35% Plan Continue supportive Start IV antibiotic, follow cultures, continue BiPAP PICC line to manage abx as noted above Eliquis stopped. Check cardiac enzymes, cardiology was consulted to see the patient in the emergency room IR for thoracentesis Will hold further fluids for now given his cardiomyopathy Check fingersticks and initiate insulin sliding scale Lasix per Cardiology management Heart failure protocol DVT prophylaxis History Interval history: Patient seen and examined, still with shortness of breath But some improvement today. Discussed with family Hospitalist Physical - Physical exam Narrative exam: General Appearance: The patient lying in bed, breathing comfortable HEENT: Normocephalic, atraumatic. Pupils equally round and reactive to light, EOMI, no sclericterus or JVD or thyromegaly or nodule. no carotid bruit, mucous membranes moist, no exudate or erythema Heart: S1-S2, regular is rhythm Lungs: diminished to auscultation bilaterally, breathing comfortable Abdomen: Positive bowel sounds, soft, nontender, nondistended, no organomegaly Extremities:trace edema, cyanosis clubbing Skin: no rash, nodule, warm and dry Neuro: cranial nerves 2-12 intact, speech is fluent, motor/sensory intact - Constitutional Vitals: Temp Pulse Resp BP Pulse Ox 98.7 F 94 H 24 105/61 96 06/12/18 11:32 06/12/18 17:03 06/12/18 11:32 06/12/18 17:03 06/12/18 11:32 General appearance: Present: no acute distress Results - Labs CBC & Chem 7: 06/11/18 04:11 06/12/18 05:30 Labs: Laboratory Last Values WBC 9.5 K/mm3 (4.5-11.0) 06/11/18 04:11 RBC 3.21 M/mm3 (3.65-5.03) L 06/11/18 04:11 Hgb 10.3 gm/dl (11.8-15.2) L 06/11/18 04:11 Hct 30.6 % (35.5-45.6) L 06/11/18 04:11 MCV 96 fl (84-94) H 06/11/18 04:11 MCH 32 pg (28-32) 06/11/18 04:11 MCHC 34 % (32-34) 06/11/18 04:11 RDW 14.3 % (13.2-15.2) 06/11/18 04:11 Plt Count 578 K/mm3 (140-440) H 06/11/18 04:11 Lymph % (Auto) 16.8 % (13.4-35.0) 06/11/18 04:11 [place] % (Auto) 9.8 % (0.0-7.3) H 06/11/18 04:11 Eos % (Auto) 0.9 % (0.0-4.3) 06/11/18 04:11 Baso % (Auto) 0.3 % (0.0-1.8) 06/11/18 04:11 Lymph # 1.6 K/mm3 (1.2-5.4) 06/11/18 04:11 [place] # 0.9 K/mm3 (0.0-0.8) H 06/11/18 04:11 Eos # 0.1 K/mm3 (0.0-0.4) 06/11/18 04:11 Baso # 0.0 K/mm3 (0.0-0.1) 06/11/18 04:11 Seg Neutrophils % 72.2 % (40.0-70.0) H 06/11/18 04:11 Seg Neutrophils # 6.9 K/mm3 (1.8-7.7) 06/11/18 04:11 PT 21.2 Sec. (12.2-14.9) H 06/10/18 20:24 INR 1.71 (0.87-1.13) H 06/10/18 20:24 APTT 23.2 Sec. (24.2-36.6) L 06/10/18 20:24 POC ABG pH 7.342 (7.35-7.45) L 06/10/18 22:28 POC ABG pCO2 29.1 (35-45) L 06/10/18 22:28 POC ABG pO2 107 (80-105) H 06/10/18 22:28 POC ABG HCO3 15.8 06/10/18 22:28 POC ABG Total CO2 17 06/10/18 22:28 POC ABG O2 Sat 98 06/10/18 22:28 POC ABG Base Excess -10 06/10/18 22:28 FiO2 50 % 06/10/18 22:28 Sodium 139 mmol/L (137-145) 06/12/18 05:30 Potassium 3.6 mmol/L (3.6-5.0) D 06/12/18 05:30 Chloride 103.0 mmol/L (98-107) 06/12/18 05:30 Carbon Dioxide 23 mmol/L (22-30) 06/12/18 05:30 Anion Gap 17 mmol/L 06/12/18 05:30 BUN 9 mg/dL (9-20) 06/12/18 05:30 Creatinine 0.8 mg/dL (0.8-1.5) 06/12/18 05:30 Estimated GFR > 60 ml/min 06/12/18 05:30 BUN/Creatinine Ratio 11 % 06/12/18 05:30 Glucose 132 mg/dL (75-100) H 06/12/18 05:30 POC Glucose 142 (70-105) H 06/12/18 16:13 Lactic Acid 1.80 mmol/L (0.7-2.0) 06/10/18 23:36 Calcium 8.2 mg/dL (8.4-10.2) L 06/12/18 05:30 Total Bilirubin 0.70 mg/dL (0.1-1.2) 06/10/18 20:24 AST 34 units/L (5-40) 06/10/18 20:24 ALT 32 units/L (7-56) 06/10/18 20:24 Alkaline Phosphatase 152 units/L (35-129) H 06/10/18 20:24 Total Creatine Kinase 283 units/L (55-170) H 06/11/18 04:11 CK-MB (CK-2) 6.8 ng/mL (0.0-4.0) H 06/11/18 04:11 CK-MB (CK-2) Rel Index 2.4 (0-4) 06/11/18 04:11 Troponin T 1.720 ng/mL (0.00-0.029) H* 06/12/18 05:30 NT-Pro-B Natriuret Pep 68522 pg/mL (0-900) H 06/10/18 20:24 Total Protein 7.2 g/dL (6.3-8.2) 06/10/18 20:24 Albumin 2.9 g/dL (3.9-5) L 06/10/18 20:24 Albumin/Globulin Ratio 0.7 % 06/10/18 20:24 Triglycerides 95 mg/dL (2-149) 06/10/18 20:24 Cholesterol 92 mg/dL (50-199) 06/10/18 20:24 LDL Cholesterol Direct 54 mg/dL (50-130) 06/10/18 20:24 HDL Cholesterol 19 mg/dL (40-59) L 06/10/18 20:24 Cholesterol/HDL Ratio 4.84 % 06/10/18 20:24 Lipase 37 units/L (13-60) 06/10/18 20:24
[2018-06-12] MEDS: BRILINTA PO SCH (21:35)
[2018-06-12] MEDS: LEXAPRO PO SCH (21:35)
[2018-06-13] MEDS: LANOXIN IV SCH ×2 (00:39→05:51)
[2018-06-13] MEDS: LASIX PO SCH ×2 (05:17→17:15)
[2018-06-13] MEDS: AZACTAM/NS 1 GM/50 ML 1 GM/50 ML VIAL IV SCH ×3 (05:52→21:24)
[2018-06-13] MEDS: HumaLOG SUB-Q SCH ×3 (07:30→21:18)
[2018-06-13] MEDS: BROVANA NEBU IH SCH ×2 (07:50→21:32)
[2018-06-13] MEDS: PULMICORT IH SCH ×2 (07:50→21:32)
--- NOTE | 2018-06-13 08:45 | Progress Note ---
Assessment and Plan acute respiratory failure acute shf cad hyperlipidemia copd plerual effusion nstemi type 2 rec: reviewed chart from [place], unclear reason for eliquis, pt was on for one month, will cont dapt, with asa and birlinita and stop eliquis and discuss with son and patient about the stopping eliquis. pt heart rate imporved with dig and cont coreg and no sidra or arb secondary to low bp, in view of low bp start lasix 20mg bid iv and may consider thoracentsis. will followup with cxr two views for amount of effusion, if better no need for thoracentesis. add aldactone 25mg and change to lasix 40mg daily in am if stable, discuss with pt and son Subjective Date of service: 06/13/18 Principal diagnosis: sob Interval history: sob has improved Objective Vital Signs Temp Pulse Pulse Resp Resp BP BP 06/13/18 08:09 99 H 20 06/13/18 07:50 98 H 18 06/13/18 07:27 98.4 F 18 104/56 06/13/18 05:51 102 H 06/13/18 04:23 98.6 F 102 H 20 93/60 06/13/18 00:39 95 H 107/68 06/13/18 00:26 99.2 F 95 H 20 107/65 06/12/18 22:11 106 H 06/12/18 20:10 98 H 17 06/12/18 20:02 06/12/18 20:00 97 H 21 06/12/18 19:44 99.0 F 106 H 24 107/66 06/12/18 17:03 94 H 105/61 06/12/18 16:07 98.2 F 18 105/61 06/12/18 13:26 99 H 102/65 06/12/18 11:32 98.7 F 99 H 24 102/65 06/12/18 09:07 108 H 20 06/12/18 08:59 06/12/18 08:57 105 H 18 Pulse Ox 06/13/18 08:09 06/13/18 07:50 100 06/13/18 07:27 06/13/18 05:51 06/13/18 04:23 93 06/13/18 00:39 06/13/18 00:26 97 06/12/18 22:11 06/12/18 20:10 02/21/19 20:02 98 06/12/18 20:00 06/12/18 19:44 97 06/12/18 17:03 06/12/18 16:07 06/12/18 13:26 06/12/18 11:32 96 06/12/18 09:07 06/12/18 08:59 98 06/12/18 08:57 - Physical Examination General: No Apparent Distress HEENT: Positive: PERRL, Normocephaly, Mucus Membranes Moist Neck: Positive: neck supple, trachea midline, JVD/HJR Cardiac: Positive: Reg Rate and Rhythm Lungs: Positive: clear to auscultation Neuro: Positive: Grossly Intact Abdomen: Positive: Soft. Negative: Tender Skin: Negative: Rash, Wound Musculoskeletal: No Pain Extremities: Absent: edema - Imaging and Cardiology EKG: report reviewed, image reviewed Echo: pending, report reviewed (ef 35% lateral wall akineisis, moderate mr and moderate tr rvsp 55-60 mm hg) Cardiac cath: report reviewed (STEMI on 05/29 and subsequently underwent thrombectomy to two occluded obtuse marginal branches in the distal LAD and distal LAD was cut off due to distal embolizations, IABP was placed and later removed on 05/31) - Telemetry EKG Rhythm: Sinus Rhythm - EKG Sinus rhythms and dysrhythmias: sinus rhythm Myocardial infarction: lateral [place] (old age or in
[2018-06-13] MEDS ORDERED: ALDACTONE PO SCH (10:00)
--- NOTE | 2018-06-13 10:21 | XRay Report ---
ROUTINE CHEST, TWO VIEWS: HISTORY: Pleural effusion. Pulmonary venous congestion has nearly resolved since 06/10/18. Mild cardiomegaly has resolved. A small layering left pleural effusion is identified which is estimated at 100-200 cc. No obvious right pleural effusion. No pneumothorax. IMPRESSION: Significant improvement in volume overload since 05/31/18. A small left pleural effusion persists.
[2018-06-13] MEDS ORDERED: XYLOCAINE 1% 20 mL ONE (14:02)
--- NOTE | 2018-06-13 14:25 | Procedure Note ---
Date of procedure: 06/13/18 Pre-op diagnosis: left pleural effusion Post-op diagnosis: same Procedure: US thoracentesis Findings: left pleural effusion Anesthesia: local Surgeon: ROXANE HUTCHINS Estimated blood loss: none Pathology: list (120cc) Specimen disposition: to lab Condition: stable Disposition: floor
--- NOTE | 2018-06-13 14:51 | Ultrasound Report ---
ULTRASOUND THORACENTESIS History: Pleural effusion Description of procedure: Informed consent was obtained. Sterile technique was utilized. 1% lidocaine for skin anesthesia. Using ultrasound guidance, a 5 [place] centesis needle was advanced into the left pleural space. There was spontaneous return of blood-tinged fluid. 600 cc of fluid was aspirated. 120 cc of fluid was saved for laboratory analysis if needed. No complications. Impression: Successful ultrasound-guided left thoracentesis.
--- NOTE | 2018-06-13 14:53 | Progress Note ---
Assessment and Plan Assessment and plan: 67-year-old male history of hypertention, diabetes, coronary artery disease, CVA comes emergency room with complaints of generalized weakness and shortness of breath. The patient was discharged from the hospital on Saturday in [place], he was noted to have non-STEMI, status post stent, CVA while in the hospital and staph bacteremia. He also has a history of cardiomyopathy, EF of 35%. Review of records from outside facility. Patient was discharged 06/05/18 following 7 days stay in hospital in [place] where he was treated for * STEMI with ballon pump removed on 05/31/18, Thrombectomy to to occluded obtuse marginal branches in the distal LAD which was cut off due to distal embolization. * ICU psychosis * CVA with MRI showing scattered areas of subacute to early chronic infarct in the mid to posterior MCA. Negative Carotid doppler * Placed on Apixaban 5mg BID, aspirin 81mg daily, Atorvastatin 80mg daily, Coreg 3.125mg po BID, ceftriaxaone 2g po daily ending 06/16/17 for staph areus bactermia, insulin, Brilianta 90mg PO BID * MARTHA not started due to Hypotension Acute respiratory distress HCAP Secondary to staph areus Acute on chronic Systolic Heart failure Coronary artery disease, status post recent stent with elevated troponin Hypertension NSTEMI Type 2 Diabetes Mellulits Ischemic Cardiomyopathy Pleural effusion Emphysema Recent STEMI History of CVA Cardiomyopathy, EF of 35% Plan Continue supportive Start IV antibiotic, follow cultures, continue BiPAP PICC line to manage abx as noted above Eliquis stopped. Per cardiology aldactone 25mg and change to lasix 40mg daily in am if stable, discuss with pt and son Check cardiac enzymes, cardiology was consulted to see the patient in the emergency room IR for thoracentesis Will hold further fluids for now given his cardiomyopathy Check fingersticks and initiate insulin sliding scale Lasix per Cardiology management Heart failure protocol DVT prophylaxis Discussed with cardiology. Anticipate discharge in am History Interval history: Patient seen and examined, Reports improvement. Planned for thoracentesis today Hospitalist Physical - Physical exam Narrative exam: General Appearance: The patient lying in bed, breathing comfortable HEENT: Normocephalic, atraumatic. Pupils equally round and reactive to light, EOMI, no sclericterus or JVD or thyromegaly or nodule. no carotid bruit, mucous membranes moist, no exudate or erythema Heart: S1-S2, regular is rhythm Lungs: diminished to auscultation bilaterally, breathing comfortable Abdomen: Positive bowel sounds, soft, nontender, nondistended, no organomegaly Extremities:trace edema, cyanosis clubbing Skin: no rash, nodule, warm and dry Neuro: cranial nerves 2-12 intact, speech is fluent, motor/sensory intact - Constitutional Vitals: Temp Pulse Resp BP Pulse Ox 98.3 F 99 H 18 99/60 100 06/13/18 11:48 06/13/18 08:09 06/13/18 11:48 06/13/18 11:48 06/13/18 07:50 General appearance: Present: no acute distress Results - Labs CBC & Chem 7: 06/11/18 04:11 06/12/18 05:30 Labs: Laboratory Last Values WBC 9.5 K/mm3 (4.5-11.0) 06/11/18 04:11 RBC 3.21 M/mm3 (3.65-5.03) L 06/11/18 04:11 Hgb 10.3 gm/dl (11.8-15.2) L 06/11/18 04:11 Hct 30.6 % (35.5-45.6) L 06/11/18 04:11 MCV 96 fl (84-94) H 06/11/18 04:11 MCH 32 pg (28-32) 06/11/18 04:11 MCHC 34 % (32-34) 06/11/18 04:11 RDW 14.3 % (13.2-15.2) 06/11/18 04:11 Plt Count 578 K/mm3 (140-440) H 06/11/18 04:11 Lymph % (Auto) 16.8 % (13.4-35.0) 06/11/18 04:11 [place] % (Auto) 9.8 % (0.0-7.3) H 06/11/18 04:11 Eos % (Auto) 0.9 % (0.0-4.3) 06/11/18 04:11 Baso % (Auto) 0.3 % (0.0-1.8) 06/11/18 04:11 Lymph # 1.6 K/mm3 (1.2-5.4) 06/11/18 04:11 [place] # 0.9 K/mm3 (0.0-0.8) H 06/11/18 04:11 Eos # 0.1 K/mm3 (0.0-0.4) 06/11/18 04:11 Baso # 0.0 K/mm3 (0.0-0.1) 06/11/18 04:11 Seg Neutrophils % 72.2 % (40.0-70.0) H 06/11/18 04:11 Seg Neutrophils # 6.9 K/mm3 (1.8-7.7) 06/11/18 04:11 PT 21.2 Sec. (12.2-14.9) H 06/10/18 20:24 INR 1.71 (0.87-1.13) H 06/10/18 20:24 APTT 23.2 Sec. (24.2-36.6) L 06/10/18 20:24 POC ABG pH 7.342 (7.35-7.45) L 06/10/18 22:28 POC ABG pCO2 29.1 (35-45) L 06/10/18 22:28 POC ABG pO2 107 (80-105) H 06/10/18 22:28 POC ABG HCO3 15.8 06/10/18 22:28 POC ABG Total CO2 17 06/10/18 22:28 POC ABG O2 Sat 98 06/10/18 22:28 POC ABG Base Excess -10 06/10/18 22:28 FiO2 50 % 06/10/18 22:28 Sodium 139 mmol/L (137-145) 06/12/18 05:30 Potassium 3.6 mmol/L (3.6-5.0) D 06/12/18 05:30 Chloride 103.0 mmol/L (98-107) 06/12/18 05:30 Carbon Dioxide 23 mmol/L (22-30) 06/12/18 05:30 Anion Gap 17 mmol/L 06/12/18 05:30 BUN 9 mg/dL (9-20) 06/12/18 05:30 Creatinine 0.8 mg/dL (0.8-1.5) 06/12/18 05:30 Estimated GFR > 60 ml/min 06/12/18 05:30 BUN/Creatinine Ratio 11 % 06/12/18 05:30 Glucose 132 mg/dL (75-100) H 06/12/18 05:30 POC Glucose 108 (70-105) H 06/13/18 11:48 Lactic Acid 1.80 mmol/L (0.7-2.0) 06/10/18 23:36 Calcium 8.2 mg/dL (8.4-10.2) L 06/12/18 05:30 Total Bilirubin 0.70 mg/dL (0.1-1.2) 06/10/18 20:24 AST 34 units/L (5-40) 06/10/18 20:24 ALT 32 units/L (7-56) 06/10/18 20:24 Alkaline Phosphatase 152 units/L (35-129) H 06/10/18 20:24 Total Creatine Kinase 283 units/L (55-170) H 06/11/18 04:11 CK-MB (CK-2) 6.8 ng/mL (0.0-4.0) H 06/11/18 04:11 CK-MB (CK-2) Rel Index 2.4 (0-4) 06/11/18 04:11 Troponin T 1.720 ng/mL (0.00-0.029) H* 06/12/18 05:30 NT-Pro-B Natriuret Pep 51756 pg/mL (0-900) H 06/10/18 20:24 Total Protein 7.2 g/dL (6.3-8.2) 06/10/18 20:24 Albumin 2.9 g/dL (3.9-5) L 06/10/18 20:24 Albumin/Globulin Ratio 0.7 % 06/10/18 20:24 Triglycerides 95 mg/dL (2-149) 06/10/18 20:24 Cholesterol 92 mg/dL (50-199) 06/10/18 20:24 LDL Cholesterol Direct 54 mg/dL (50-130) 06/10/18 20:24 HDL Cholesterol 19 mg/dL (40-59) L 06/10/18 20:24 Cholesterol/HDL Ratio 4.84 % 06/10/18 20:24 Lipase 37 units/L (13-60) 06/10/18 20:24
[2018-06-13] MEDS: BRILINTA PO SCH ×2 (17:15→21:25)
[2018-06-13] MEDS: PROTONIX PO SCH (17:15)
[2018-06-13] MEDS: LANOXIN PO SCH (17:15)
[2018-06-13] MEDS: COREG PO SCH ×3 (17:15→21:27)
--- NOTE | 2018-06-13 17:15 | XRay Report ---
FINAL REPORT EXAM: XR CHEST 1V AP HISTORY: left pleural effusion, recent thoracentesis TECHNIQUE: upright single view chest PRIORS: None. FINDINGS: Cardiac and mediastinal contours are unremarkable. No focal pulmonary infiltrate is identified. No pleural fluid collection seen. Pulmonary vasculature is unremarkable. IMPRESSION: Negative single-view chest
[2018-06-13] MEDS: SODIUM CHLORIDE FLUSH SYRINGE 10 ML IV SCH ×2 (17:16→21:26)
[2018-06-13] MEDS: BABY ASPIRIN PO SCH (17:16)
[2018-06-13] MEDS: LEXAPRO PO SCH (21:25)
[2018-06-14] MEDS: AZACTAM/NS 1 GM/50 ML 1 GM/50 ML VIAL IV SCH ×2 (05:21→15:37)
[2018-06-14 06:30] LABS: Hematocrit 31.7 % (35.5-45.6); Hemoglobin 10.8 gm/dl (11.8-15.2); Mean Corpuscular HGB Conc 34 % (32-34); Mean Corpuscular Volume 95 fl (84-94); Platelet Count 568 K/mm3 (140-440); Red Blood Count 3.34 M/mm3 (3.65-5.03); Red Cell Distribution Width 14.4 % (13.2-15.2)
[2018-06-14 06:48] LABS: BUN/Creatinine Ratio 13; Blood Urea Nitrogen 9 mg/dL (9-20); Hemolysis Index 0
[2018-06-14] MEDS: HumaLOG SUB-Q SCH ×3 (08:11→16:45)
[2018-06-14] MEDS: BRILINTA PO SCH (09:09)
[2018-06-14] MEDS: BABY ASPIRIN PO SCH (09:09)
[2018-06-14] MEDS: COREG PO SCH (09:12)
[2018-06-14] MEDS: SODIUM CHLORIDE FLUSH SYRINGE 10 ML IV SCH (09:13)
[2018-06-14] MEDS: PROTONIX PO SCH (09:13)
[2018-06-14] MEDS: PULMICORT IH SCH (09:56)
[2018-06-14] MEDS: BROVANA NEBU IH SCH (09:56)
--- NOTE | 2018-06-14 10:42 | Progress Note ---
Assessment and Plan acute respiratory failure acute shf cad hyperlipidemia copd plerual effusion nstemi type 2 rec: feeling better dapt compliance stressed cxr w/o pleural effusion stable cv status ambulate d/c later today w/ close f/u with us Subjective Date of service: 06/14/18 Principal diagnosis: sob Interval history: feels better Objective Vital Signs Temp Pulse Pulse Resp Resp BP Pulse Ox 06/14/18 09:58 97 06/14/18 09:56 77 18 06/14/18 07:53 98.3 F 82 18 96/55 96 06/14/18 05:03 99.0 F 73 20 101/51 97 06/13/18 23:47 98.8 F 75 20 88/47 92 06/13/18 22:00 85 06/13/18 21:49 87 14 06/13/18 21:36 98 06/13/18 21:33 83 13 06/13/18 19:27 98.3 F 86 18 90/51 96 06/13/18 15:55 98.7 F 18 99/60 06/13/18 11:48 98.3 F 18 99/60 - Physical Examination General: No Apparent Distress HEENT: Positive: PERRL, Normocephaly, Mucus Membranes Moist Neck: Positive: neck supple, trachea midline, JVD/HJR Neuro: Positive: Grossly Intact Abdomen: Positive: Soft. Negative: Tender Skin: Negative: Rash, Wound Musculoskeletal: No Pain Extremities: Absent: edema - Labs and Meds CBC 06/14/18 Range/Units 05:24 WBC 6.6 (4.5-11.0) K/mm3 RBC 3.34 L (3.65-5.03) M/mm3 Hgb 10.8 L (11.8-15.2) gm/dl Hct 31.7 L (35.5-45.6) % Plt Count 568 H (140-440) K/mm3 Comprehensive Metabolic Panel 06/14/18 Range/Units 05:24 Sodium 139 (137-145) mmol/L Potassium 3.8 (3.6-5.0) mmol/L Chloride 102.7 (98-107) mmol/L Carbon Dioxide 24 (22-30) mmol/L BUN 9 (9-20) mg/dL Creatinine 0.7 L (0.8-1.5) mg/dL Glucose 114 H (75-100) mg/dL Calcium 8.0 L (8.4-10.2) mg/dL - Imaging and Cardiology EKG: report reviewed, image reviewed Echo: pending, report reviewed (ef 35% lateral wall akineisis, moderate mr and moderate tr rvsp 55-60 mm hg) Cardiac cath: report reviewed (STEMI on 05/29 and subsequently underwent thrombectomy to two occluded obtuse marginal branches in the distal LAD and distal LAD was cut off due to distal embolizations, IABP was placed and later removed on 05/31) - EKG Sinus rhythms and dysrhythmias: sinus rhythm Myocardial infarction: lateral IN (old age or in
--- NOTE | 2018-06-14 11:39 | Discharge Summary ---
Providers - Providers Date of Admission: 06/10/18 22:27 Attending physician: ABENA MURPHY MD 06/10/18 21:48 Consult to Physician [CONS] Urgent Comment: Consulting Provider: EUGENE DELGADO Physician Instructions: Reason For Exam: + troponin hx fo stemi 06/12/18 10:44 Midline [Consult to PICC Line RN] [CONS] Routine Reason For Exam: home antibiotic for 5 days Type Line:: Midline 06/14/18 11:18 Physical Therapy Evaluation and Treat [CONS] Routine Comment: Reason For Exam: ataxia Hospitalization Reason for admission: RESPIRATORY FAILURE Condition: Stable Hospital course: 67-year-old male history of hypertention, diabetes, coronary artery disease, CVA comes emergency room with complaints of generalized weakness and shortness of breath. The patient was discharged from the hospital on Saturday in [place], he was noted to have non-STEMI, status post stent, CVA while in the hospital and staph bacteremia. He also has a history of cardiomyopathy, EF of 35%. Review of records from outside facility. Patient was discharged 06/05/18 following 7 days stay in hospital in [place] where he was treated for * STEMI with ballon pump removed on 05/31/18, Thrombectomy to to occluded obtuse marginal branches in the distal LAD which was cut off due to distal embolization. * ICU psychosis * CVA with MRI showing scattered areas of subacute to early chronic infarct in the mid to posterior MCA. Negative Carotid doppler * Placed on Apixaban 5mg BID, aspirin 81mg daily, Atorvastatin 80mg daily, Coreg 3.125mg po BID, ceftriaxaone 2g po daily ending 06/16/17 for staph areus bactermia, insulin, Brilianta 90mg PO BID * MARTHA not started due to Hypotension Patient was treaed with IV antibiotic, follow cultures, continue BiPAP, PICC line to manage abx as noted above, Eliquis stopped. Per cardiology aldactone 25mg and change to lasix 40mg daily in am if stable, discuss with pt and son. IR for thoracentesis Patient was advised to follow with cardiology outpatient. Acute respiratory distress HCAP Secondary to staph areus Acute on chronic Systolic Heart failure Coronary artery disease, status post recent stent with elevated troponin Hypertension NSTEMI Type 2 Diabetes Mellulits Ischemic Cardiomyopathy Pleural effusion Emphysema Recent STEMI History of CVA Cardiomyopathy, EF of 35% Disposition: [id number] HOME UNDER HOME [facility] Time spent for discharge: 35 mins Core Measure Documentation - Palliative Care Palliative Care/ Comfort Measures: Not Applicable - Core Measures Any of the following diagnoses?: heart failure - Heart Failure Discharge Requirements MARTHA/ARB for LVSD if EF <40%: Yes Beta bridgette at discharge: Yes Exam - Physical Exam Narrative exam: General Appearance: The patient lying in bed, breathing comfortable HEENT: Normocephalic, atraumatic. Pupils equally round and reactive to light, EOMI, no sclericterus or JVD or thyromegaly or nodule. no carotid bruit, mucous membranes moist, no exudate or erythema Heart: S1-S2, regular is rhythm Lungs: diminished to auscultation bilaterally, breathing comfortable Abdomen: Positive bowel sounds, soft, nontender, nondistended, no organomegaly Extremities:trace edema, cyanosis clubbing Skin: no rash, nodule, warm and dry Neuro: cranial nerves 2-12 intact, speech is fluent, motor/sensory intact - Constitutional Vitals: Temp Pulse Resp BP Pulse Ox 98.0 F 78 20 92/52 96 06/14/18 11:25 06/14/18 11:25 06/14/18 11:25 06/14/18 11:25 06/14/18 11:25 Plan Activity: advance as tolerated, fall precautions Diet: low salt Special Instructions: record daily weights, record daily BP diary Follow up with: JACK BRADLEY [Other] - 7 Days ARACELY HARRINGTON MD [Staff Physician] - 7 Days ([facility], 06/23/2018 @ 10:30AM) Prescriptions: Digoxin [Lanoxin] 0.125 mg PO DAILY@1700 #30 tablet Furosemide [Lasix TAB] 20 mg PO 0600,1800 #60 tablet levoFLOXacin [Levaquin] 750 mg PO QDAY #2 tablet Spironolactone [Aldactone] 25 mg PO QDAY #30 tablet
[2018-06-14] MEDS: LANOXIN PO SCH (16:55)
[2018-06-14 16:57] VITALS: BP 99/54
== END 2018-06-14 17:04 | disposition home health service (06) | DRG 177 ==
LOC: ED 19:19 → IMCU 22:27 → 4A 06-11 10:00
PROVIDERS: ADMIT Internal Medicine; ATTEND Internal Medicine
PROC: 5A09357 Assistance with Respiratory Ventilation, Less than 24 Consecutive Hours, Continuous Positive Airway Pressure (ICD-10-PCS; 2018-06-10)
PROC: 4A033R1 Measurement of Arterial Saturation, Peripheral, Percutaneous Approach (ICD-10-PCS; 2018-06-10)
PROC: 5A09357 Assistance with Respiratory Ventilation, Less than 24 Consecutive Hours, Continuous Positive Airway Pressure (ICD-10-PCS; 2018-06-11)
PROC: 05HY33Z Insertion of Infusion Device into Upper Vein, Percutaneous Approach (ICD-10-PCS; 2018-06-12)
PROC: 0W9B3ZZ Drainage of Left Pleural Cavity, Percutaneous Approach (ICD-10-PCS; principal; 2018-06-13)
DX: J15.211 Pneumonia due to Methicillin susceptible Staphylococcus aureus (principal); I50.23 Acute on chronic systolic (congestive) heart failure; I21.29 ST elevation (STEMI) myocardial infarction involving other sites; J96.00 Acute respiratory failure, unspecified whether with hypoxia or hypercapnia; I21.A1 Myocardial infarction type 2; J91.8 Pleural effusion in other conditions classified elsewhere; I25.5 Ischemic cardiomyopathy; E78.5 Hyperlipidemia, unspecified; Y95 Nosocomial condition; J43.9 Emphysema, unspecified; I25.10 Atherosclerotic heart disease of native coronary artery without angina pectoris; I11.0 Hypertensive heart disease with heart failure; E11.9 Type 2 diabetes mellitus without complications; Z86.73 Personal history of transient ischemic attack (TIA), and cerebral infarction without residual deficits; Z95.5 Presence of coronary angioplasty implant and graft; Z82.49 Family history of ischemic heart disease and other diseases of the circulatory system; Z88.1 Allergy status to other antibiotic agents; Z88.0 Allergy status to penicillin; Z79.01 Long term (current) use of anticoagulants; Z79.899 Other long term (current) drug therapy; Z79.84 Long term (current) use of oral hypoglycemic drugs
CPT/HCPCS: 32555; 36415; 71045; 71046; 80048; 80053; 80061; 82140; 82550; 82553; 82803; 82962; 83690; 83880; 84484; 85025; 85027; 85610; 85730; 87040; 87116; 88112; 88305; 93005; 93010; 93306; 94640; 94660; 94760; G0378; A9270-GY; J0696; J1160; J1940; J3370; J7030; J7040; J7050

== ENCOUNTER 2018-07-04 13:53 | Emergency (ER) | payer MEDICARE ==
--- NOTE | 2018-07-04 14:12 | Emergency Department Report ---
Blank Doc - Documentation Documentation: 67 yo male recent hospital stay for pneomonia presents cc of sob x 1 day denies cp labs, cxr
[2018-07-04 14:52] LABS: Hematocrit 32.3 % (35.5-45.6); Hemoglobin 10.7 gm/dl (11.8-15.2); Mean Corpuscular HGB Conc 33 % (32-34); Mean Corpuscular Volume 94 fl (84-94); Platelet Count 428 K/mm3 (140-440); Red Blood Count 3.44 M/mm3 (3.65-5.03); Red Cell Distribution Width 15.1 % (13.2-15.2)
[2018-07-04 15:11] LABS: BUN/Creatinine Ratio 8; Blood Urea Nitrogen 9 mg/dL (9-20); Hemolysis Index 0
--- NOTE | 2018-07-04 15:19 | XRay Report ---
CHEST 2 VIEWS INDICATION: Dyspnea. COMPARISON: 06/13/2018 FINDINGS: PA and lateral chest radiographs suggest improved cardiomediastinal silhouette/smaller heart size. Interstitial markings also overall slightly less prominent, though some chronic component may persist. Minimal fluid or thickening along the fissures again noted. Interval right upper extremity PICC removal. EKG leads. Intact bones. CONCLUSION: No acute chest process with improved cardiomegaly, as described. Please correlate. Thank you for the opportunity to participate in this patient's care.
[2018-07-04 15:32] LABS: Basophils % (Manual) 0 % (0.0-1.8); Total Cells Counted 100
[2018-07-04 15:33] LABS: Ovalocytes 1+
[2018-07-04 15:34] LABS: Giant Platelets Few; Platelet Estimate Consistent w Auto; Poikilocytosis Few
[2018-07-04 15:50] LABS: Chol/HDL Ratio 4.54 %
[2018-07-04 17:43] LABS: Partial Thromboplastin Time 30.1 Sec. (24.2-36.6)
--- NOTE | 2018-07-04 18:34 | Emergency Department Report ---
ED Shortness of Breath HPI - General Chief Complaint: Dyspnea/Respdistress Stated Complaint: SOB Time Seen by Provider: 07/04/18 14:08 Source: patient Mode of arrival: Ambulatory Limitations: No Limitations - History of Present Illness Initial Comments: 67-year-old male presents to the hospitalist of the shortness breath and dry cough that when lying on his left side. He denies any chest pain, fever,calf tenderness, leg edema, fever, and dyspnea on exertion. Chronic orthopnea unchanged. Patient states that he was just admitted to the hospital with pneumonia and discharged on 06/14/2018. Previous medical records reviewed and patient had a STEMI (required balloon pump and stent placement) at a hospital in [place] and was discharged on 06/05/2018. Patient presented here on June 10 and was admitted to the hospital for staph aureus bacteremia, CHF requiring BiPAP, and required thoracentesis for left pleural effusion. Pt completed abx a fter d/c, his currently taking Brilinta but no longer on ELiquis. Pt has followed up with Dr. Ferrera his PMD and Dr Oconnor outside sales since his discharge from the hospital. - Related Data Home Medications Medication Instructions Recorded Confirmed Last Taken Aspirin 1 tab PO DAILY 06/10/18 06/10/18 Unknown Atorvastatin Calcium 80 mg PO DAILY 06/10/18 06/10/18 Unknown Budesoni/Formoterol 80-4.5(Nf) 1 puff IN Q8HR 06/10/18 06/10/18 Unknown [Symbicort 80-4.5 (Nf)] Carvedilol [Coreg] 1 tab PO BID 06/10/18 06/10/18 Unknown Escitalopram [Lexapro] 10 mg PO HS 06/10/18 06/10/18 Unknown Esomeprazole Magnesium [Nexium 1 tab PO DAILY 06/10/18 06/10/18 Unknown 24Hr] Oxymetazoline 0.05% [Afrin] 0 spray NS Q8HR PRN 06/10/18 06/10/18 Unknown Ticagrelor [Brilinta] 90 mg PO BID 06/10/18 06/10/18 Unknown Previous Rx's Medication Instructions Recorded Last Taken Type Digoxin [Lanoxin] 0.125 mg PO DAILY@1700 #30 tablet 06/14/18 Unknown Rx Furosemide [Lasix TAB] 20 mg PO 0600,1800 #60 tablet 06/14/18 Unknown Rx Spironolactone [Aldactone] 25 mg PO QDAY #30 tablet 06/14/18 Unknown Rx levoFLOXacin [Levaquin] 750 mg PO QDAY #2 tablet 06/14/18 Unknown Rx Allergies Allergy/AdvReac Type Severity Reaction Status Date / Time amoxicillin Allergy Unknown Verified 06/10/18 22:43 Penicillins Allergy Unknown Verified 06/10/18 22:43 tetracycline Allergy Unknown Verified 06/10/18 19:32 ED Review of Systems ROS: Stated complaint: SOB Other details as noted in HPI ED Past Medical Hx - Past Medical History Hx CVA: Yes Hx Heart Attack/AMI: Yes Hx Deep Vein Thrombosis: No - Surgical History Hx Pacemaker: No Hx Internal Defibrillator: No Additional Surgical History: double hernia surgery - Social History Smoking Status: Never Smoker Substance Use Type: None - Medications Home Medications: Home Medications Medication Instructions Recorded Confirmed Last Taken Type Aspirin 1 tab PO DAILY 06/10/18 06/10/18 Unknown History Atorvastatin Calcium 80 mg PO DAILY 06/10/18 06/10/18 Unknown History Budesoni/Formoterol 80-4.5(Nf) 1 puff IN Q8HR 06/10/18 06/10/18 Unknown History [Symbicort 80-4.5 (Nf)] Carvedilol [Coreg] 1 tab PO BID 06/10/18 06/10/18 Unknown History Escitalopram [Lexapro] 10 mg PO HS 06/10/18 06/10/18 Unknown History Esomeprazole Magnesium [Nexium 1 tab PO DAILY 06/10/18 06/10/18 Unknown History 24Hr] Oxymetazoline 0.05% [Afrin] 0 spray NS Q8HR PRN 06/10/18 06/10/18 Unknown History Ticagrelor [Brilinta] 90 mg PO BID 06/10/18 06/10/18 Unknown History Digoxin [Lanoxin] 0.125 mg PO DAILY@1700 #30 tablet 06/14/18 Unknown Rx Furosemide [Lasix TAB] 20 mg PO 0600,1800 #60 tablet 06/14/18 Unknown Rx Spironolactone [Aldactone] 25 mg PO QDAY #30 tablet 06/14/18 Unknown Rx levoFLOXacin [Levaquin] 750 mg PO QDAY #2 tablet 06/14/18 Unknown Rx ED Physical Exam - General Limitations: No Limitations - Other Other exam information: General: No limitations, patient is alert in no acute distress Head exam: Atraumatic, normocephalic Eyes exam: Normal appearance ENT: Moist mucous membrane Neck exam: Normal inspection, full range of motion, no meningismus nontender Respiratory exam: Clear to auscultation bilateral, no wheezes, rales, crackles Cardiovascular: Normal rate and rhythm Abdomen: Soft, nondistended, and nontender, with normal bowel sounds, no rebound, or guarding Extremity: Full range of motion normal inspection no deformity, no calf tenderness or edema Back: Normal Inspection, full range of motion, no tenderness Neurologic: Alert, oriented x3, cranial nerves intact, no motor or sensory deficit Psychiatric: normal affect, normal mood Skin: Warm, dry, intact ED Course Vital Signs 07/04/18 14:09 Temperature 98.6 F Pulse Rate 87 Respiratory 14 Rate Blood Pressure 100/60 O2 Sat by Pulse 100 Oximetry - Reevaluation(s) Reevaluation #1: 07/04/18 19:56 Lasix 40 mg IV ordered. Patient is did spironolactone and other am meds today. He missed his scheduled dose of Lasix 20 mg, digoxin, and Brilinta since he's been any ED. He was provided water to take these medications with the exception of Lasix since he was provided a 40 mg IV dose. - Consultations Consultation #1: 07/04/18 19:51 case d/w dr Arias outside sales, Recommend one dose of lasix 40mg and f/u. Pt has an apt on Saturday ED Medical Decision Making - Lab Data Result diagrams: 07/04/18 14:38 07/04/18 14:38 Lab Results 07/04/18 07/04/18 07/04/18 Range/Units 14:38 14:38 14:38 WBC 5.5 (4.5-11.0) K/mm3 RBC 3.44 L (3.65-5.03) M/mm3 Hgb 10.7 L (11.8-15.2) gm/dl Hct 32.3 L (35.5-45.6) % MCV 94 (84-94) fl MCH 31 (28-32) pg MCHC 33 (32-34) % RDW 15.1 (13.2-15.2) % Plt Count 428 (140-440) K/mm3 Add Manual Diff Complete Total Counted 100 Seg Neutrophils % School Resource Officer Seg Neuts % (Manual) 39.0 L (40.0-70.0) % Band Neutrophils % 0 % Lymphocytes % (Manual) 35.0 (13.4-35.0) % Reactive Lymphs % (Man) 0 % Monocytes % (Manual) 14.0 H (0.0-7.3) % Eosinophils % (Manual) 12.0 H (0.0-4.3) % Basophils % (Manual) 0 (0.0-1.8) % Metamyelocytes % 0 % Myelocytes % 0 % Promyelocytes % 0 % Blast Cells % 0 % Nucleated RBC % Not Reportable Seg Neutrophils # Man 2.1 (1.8-7.7) K/mm3 Band Neutrophils # 0.0 K/mm3 Lymphocytes # (Manual) 1.9 (1.2-5.4) K/mm3 Abs React Lymphs (Man) 0.0 K/mm3 Monocytes # (Manual) 0.8 (0.0-0.8) K/mm3 Eosinophils # (Manual) 0.7 H (0.0-0.4) K/mm3 Basophils # (Manual) 0.0 (0.0-0.1) K/mm3 Metamyelocytes # 0.0 K/mm3 Myelocytes # 0.0 K/mm3 Promyelocytes # 0.0 K/mm3 Blast Cells # 0.0 K/mm3 WBC Morphology Not Reportable Hypersegmented Neuts Not Reportable Hyposegmented Neuts Not Reportable Hypogranular Neuts Not Reportable Smudge Cells Not Reportable Toxic Granulation Not Reportable Toxic Vacuolation Not Reportable Dohle Bodies Not Reportable Pelger-Huet Anomaly Not Reportable Cris Rods Not Reportable Platelet Estimate Consistent w auto Clumped Platelets Not Reportable Plt Clumps, EDTA Not Reportable Large Platelets Not Reportable Giant Platelets Few Platelet Satelliting Not Reportable Plt Morphology Comment Not Reportable RBC Morphology Not Reportable Dimorphic RBCs Not Reportable Polychromasia Not Reportable Hypochromasia Not Reportable Poikilocytosis Few Anisocytosis Not Reportable Microcytosis Not Reportable Macrocytosis Not Reportable Spherocytes Not Reportable Pappenheimer Bodies Not Reportable Sickle Cells Not Reportable Target Cells Not Reportable Tear Drop Cells Not Reportable Ovalocytes 1+ Helmet Cells Not Reportable [place] Bodies Not Reportable [place] Rings Not Reportable Jeannette Cells Not Reportable Bite Cells Not Reportable Crenated Cell Not Reportable Elliptocytes Not Reportable Acanthocytes (Spur) Not Reportable Rouleaux Not Reportable Hemoglobin C Crystals Not Reportable Schistocytes Not Reportable Malaria parasites Not Reportable Sharan Bodies Not Reportable Hem Pathologist Commnt No PT 13.8 (12.2-14.9) Sec. INR 1.00 (0.87-1.13) APTT (24.2-36.6) Sec. D-Dimer (0-234) ng/mlDDU Sodium 140 (137-145) mmol/L Potassium 4.4 (3.6-5.0) mmol/L Chloride 102.2 (98-107) mmol/L Carbon Dioxide 24 (22-30) mmol/L Anion Gap 18 mmol/L BUN 9 (9-20) mg/dL Creatinine 1.1 (0.8-1.5) mg/dL Estimated GFR > 60 ml/min BUN/Creatinine Ratio 8 % Glucose 97 (75-100) mg/dL Calcium 9.0 (8.4-10.2) mg/dL Total Creatine Kinase (55-170) units/L CK-MB (CK-2) (0.0-4.0) ng/mL CK-MB (CK-2) Rel Index (0-4) Troponin T (0.00-0.029) ng/mL NT-Pro-B Natriuret Pep (0-900) pg/mL Triglycerides (2-149) mg/dL Cholesterol (50-199) mg/dL LDL Cholesterol Direct (50-130) mg/dL HDL Cholesterol (40-59) mg/dL Cholesterol/HDL Ratio % 07/04/18 07/04/18 07/04/18 Range/Units 14:38 14:48 17:24 WBC (4.5-11.0) K/mm3 RBC (3.65-5.03) M/mm3 Hgb (11.8-15.2) gm/dl Hct (35.5-45.6) % MCV (84-94) fl MCH (28-32) pg MCHC (32-34) % RDW (13.2-15.2) % Plt Count (140-440) K/mm3 Add Manual Diff Total Counted Seg Neutrophils % Seg Neuts % (Manual) (40.0-70.0) % Band Neutrophils % % Lymphocytes % (Manual) (13.4-35.0) % Reactive Lymphs % (Man) % Monocytes % (Manual) (0.0-7.3) % Eosinophils % (Manual) (0.0-4.3) % Basophils % (Manual) (0.0-1.8) % Metamyelocytes % % Myelocytes % % Promyelocytes % % Blast Cells % % Nucleated RBC % Seg Neutrophils # Man (1.8-7.7) K/mm3 Band Neutrophils # K/mm3 Lymphocytes # (Manual) (1.2-5.4) K/mm3 Abs React Lymphs (Man) K/mm3 Monocytes # (Manual) (0.0-0.8) K/mm3 Eosinophils # (Manual) (0.0-0.4) K/mm3 Basophils # (Manual) (0.0-0.1) K/mm3 Metamyelocytes # K/mm3 Myelocytes # K/mm3 Promyelocytes # K/mm3 Blast Cells # K/mm3 WBC Morphology Hypersegmented Neuts Hyposegmented Neuts Hypogranular Neuts Smudge Cells Toxic Granulation Toxic Vacuolation Dohle Bodies Pelger-Huet Anomaly Cris Rods Platelet Estimate Clumped Platelets Plt Clumps, EDTA Large Platelets Giant Platelets Platelet Satelliting Plt Morphology Comment RBC Morphology Dimorphic RBCs Polychromasia Hypochromasia Poikilocytosis Anisocytosis Microcytosis Macrocytosis Spherocytes Pappenheimer Bodies Sickle Cells Target Cells Tear Drop Cells Ovalocytes Helmet Cells [place] Bodies [place] Rings Jeannette Cells Bite Cells Crenated Cell Elliptocytes Acanthocytes (Spur) Rouleaux Hemoglobin C Crystals Schistocytes Malaria parasites Sharan Bodies Hem Pathologist Commnt PT (12.2-14.9) Sec. INR (0.87-1.13) APTT 30.1 (24.2-36.6) Sec. D-Dimer 1573 H (0-234) ng/mlDDU Sodium (137-145) mmol/L Potassium (3.6-5.0) mmol/L Chloride (98-107) mmol/L Carbon Dioxide (22-30) mmol/L Anion Gap mmol/L BUN (9-20) mg/dL Creatinine (0.8-1.5) mg/dL Estimated GFR ml/min BUN/Creatinine Ratio % Glucose (75-100) mg/dL Calcium (8.4-10.2) mg/dL Total Creatine Kinase 121 (55-170) units/L CK-MB (CK-2) 2.0 (0.0-4.0) ng/mL CK-MB (CK-2) Rel Index 1.6 (0-4) Troponin T 0.250 H* 0.223 H* (0.00-0.029) ng/mL NT-Pro-B Natriuret Pep 4523 H (0-900) pg/mL Triglycerides 89 (2-149) mg/dL Cholesterol 109 (50-199) mg/dL LDL Cholesterol Direct 72 (50-130) mg/dL HDL Cholesterol 24 L (40-59) mg/dL Cholesterol/HDL Ratio 4.54 % - EKG Data -: EKG Interpreted by Me (inferior q wave, possible previous lateral infarct) EKG shows normal: sinus rhythm, axis (qrs 238), QRS complexes (qrsd 92), ST-T waves (no stemi) Rate: tachycardia (103) - EKG Data When compared to previous EKG there are: no significant change, previous EKG unavailable - Radiology Data Radiology results: report reviewed CHEST 2 VIEWS INDICATION: Dyspnea. COMPARISON: 06/13/2018 FINDINGS: PA and lateral chest radiographs suggest improved cardiomediastinal silhouette/smaller heart size. Interstitial markings also overall slightly less prominent, though some chronic component may persist. Minimal fluid or thickening along the fissures again noted. Interval right upper extremity PICC removal. EKG leads. Intact bones. CONCLUSION: No acute chest process with improved cardiomegaly, as described. Please correlate. PROCEDURE: CT ANGIO CHEST TECHNIQUE: Following administration of IV contrast axial helical imaging was performed through the chest with sagittal and coronal reformatted images and maximum intensity projection images obtained. HISTORY: sob, ddimer elevation COMPARISONS: Chest x-ray also performed today FINDINGS: There is pulmonary emphysema. There is increased thickness of the intralobular septa in both lungs which may r epresent interstitial edema. There is a small focus of pulmonary consolidation in the right lower lobe. Atelectasis versus infiltrate. There are small to moderate-sized bilateral pleural fluid collections, right greater than left. The trachea and bronchi are patent. The heart is enlarged with a small pericardial fluid collection and atherosclerotic vascular calcification of the coronary arteries. The thoracic aorta is normal caliber with atherosclerotic vascular calcification. There are prominent mediastinal lymph nodes that are nonspecific in appearance. The largest measures approximately 2.3 cm in the maximal axial dimension. No filling defects are demonstrated within the pulmonary arteries to suggest the presence of pulmonary artery emboli. The visualized portion of the upper abdomen is unremarkable. The bony structures are unremarkable. IMPRESSION: 1. Small to moderate-sized bilateral pleural fluid collections. 2. Prominence of the interlobular septa which may represent changes of interstitial edema. 3. Small focus of atelectasis versus infiltrate right lower lobe. 4. Pulmonary emphysema. 5. Cardiomegaly with small pericardial fluid collection and atherosclerotic vascular calcification of the coronary arteries. 6. No evidence of pulmonary artery emboli. - Medical Decision Making Troponin elevated. It is trending downward compared to recent admission and has remained stable during ED stay. Patient has not had chest pain. EKG unchanged compared to previous. Mild to moderate pleural effusions noted on CT but not on x-ray. One dose of IV Lasix provided. Patient in no respiratory distress with unchanged orthopnea. Patient will be discharged to follow with outside sales as scheduled in 2 days. - Differential Diagnosis pneumonia, bronchitis, CHF, PE, GA Critical Care Time: No Critical care attestation.: If time is entered above; I have spent that time in minutes in the direct care of this critically ill patient, excluding procedure time. ED Disposition Clinical Impression: Emphysema of lung, CHF (congestive heart failure), Recent ST elevation myocardial infarction (STEMI) Disposition: DC- TO HOME OR SELFCARE Is pt being admited?: No Does the pt Need Aspirin: No Condition: Stable Instructions: Heart Failure (ED) Additional Instructions: Continue your medication as prescribed. Follow up with your doctor or the clinic/doctor provided. Return if symptoms worsen as indicated by your discharge instructions Referrals: ARACELY OCONNOR MD [Staff Physician] - 3-5 Days Time of Disposition: 19:59
--- NOTE | 2018-07-04 19:32 | Cat Scan Report ---
PROCEDURE: CT ANGIO CHEST TECHNIQUE: Following administration of IV contrast axial helical imaging was performed through the c hest with sagittal and coronal reformatted images and maximum intensity projection images obtained. HISTORY: sob, ddimer elevation COMPARISONS: Chest x-ray also performed today FINDINGS: There is pulmonary emphysema. There is increased thickness of the intralobular septa in both lungs which may represent interstitial edema. There is a small focus of pulmonary consolidation in the right lower lobe. Atelectasis versus infiltr ate. There are small to moderate-sized bilateral pleural fluid collections, right greater than left. The trachea and bronchi are patent. The heart is enlarged with a small pericardial fluid collection and atherosclerotic vascular calcific ation of the coronary arteries. The thoracic aorta is normal caliber with atherosclerotic vascular calcification. There are prominent mediastinal lymph nodes that are nonspecific in appearance. The largest measures approximately 2.3 cm in the maximal axial dimension. No filling defects are demonstrated within the pulmonary arteries to suggest the presence of pulmonar y artery emboli. The visualized portion of the upper abdomen is unremarkable. The bony structures are unremarkable. IMPRESSION: 1. Small to moderate-sized bilateral pleural fluid collections. 2. Prominence of the interlobular septa which may represent changes of interstitial edema. 3. Small focus of atelectasis versus infiltrate right lower lobe. 4. Pulmonary emphysema. 5. Cardiomegaly with small pericardial fluid collection and atherosclerotic vascular calcification of the coronary arteries. 6. No evidence of pulmonary artery emboli. This document is electronically signed by Yasmin Nowak MD., July 04 2018 07:30:06 PM ET
[2018-07-04] MEDS ORDERED: LASIX IV ONE (19:49)
[2018-07-04 20:06] VITALS: BP 115/70
== END 2018-07-04 20:22 | disposition home or self-care (01) ==
LOC: ED 13:53
DX: J43.9 Emphysema, unspecified (principal); I21.3 ST elevation (STEMI) myocardial infarction of unspecified site; Z79.82 Long term (current) use of aspirin; Z88.1 Allergy status to other antibiotic agents; Z88.0 Allergy status to penicillin
CPT/HCPCS: 36415; 71046; 71275; 80048; 80061; 82550; 82553; 83880; 84484; 85007; 85025; 85379; 85610; 85730; 93005; 93010; 96374; 99284; J1940; Q9967

== ENCOUNTER 2018-08-03 12:10 | Emergency (ER) | payer MEDICARE ==
--- NOTE | 2018-08-03 12:44 | Emergency Department Report ---
Chief Complaint: Dyspnea/Respdistress Stated Complaint: LEFT SIDE HEAVINESS Time Seen by Provider: 08/03/18 12:39 - HPI History of Present Illness: pt presents with SOB that began 3-4 days ago left sided chest heaviness, palpitations hx of CHF pt is on lasix 40 mg Alyx, cardiology last seen on July 28 recently started on metropolol 25 mg on july [address] Darby had a NE in May 2018 MSE screening note: Focused history and physical exam performed. Due to findings the following was ordered: CXR, EKG, labs ED Disposition for MSE Condition: Stable
[2018-08-03 13:09] LABS: Basophils # (Auto) 0.1 K/mm3 (0.0-0.1); Basophils % (Auto) 0.8 % (0.0-1.8); Eosinophils # (Auto) 0.3 K/mm3 (0.0-0.4); Eosinophils % (Auto) 4.7 % (0.0-4.3); Hematocrit 35.7 % (35.5-45.6); Hemoglobin 11.7 gm/dl (11.8-15.2); Lymphocytes # (Auto) 3.1 K/mm3 (1.2-5.4); Lymphocytes % (Auto) 45.2 % (13.4-35.0); Mean Corpuscular HGB Conc 33 % (32-34); Mean Corpuscular Volume 95 fl (84-94); Monocytes # (Auto) 0.7 K/mm3 (0.0-0.8); Monocytes % (Auto) 10.2 % (0.0-7.3); Platelet Count 292 K/mm3 (140-440); Red Blood Count 3.75 M/mm3 (3.65-5.03); Red Cell Distribution Width 16.7 % (13.2-15.2)
[2018-08-03 13:25] LABS: INR 1.06 (0.87-1.13)
[2018-08-03] MEDS ORDERED: LASIX IV ONE (13:25)
[2018-08-03 13:26] LABS: Partial Thromboplastin Time 30.2 Sec. (24.2-36.6)
[2018-08-03 13:28] LABS: BUN/Creatinine Ratio 19; Blood Urea Nitrogen 17 mg/dL (9-20); Calcium 9.1 mg/dL (8.4-10.2); Hemolysis Index 8
--- NOTE | 2018-08-03 13:29 | XRay Report ---
EXAM: XR CHEST ROUTINE 2V HISTORY: Chest Pain TECHNIQUE: PA and lateral chest x-ray dated 08/03/2018 at 12:56 PM. COMPARISON: None available. FINDINGS: There is mild prominence of the bronchopulmonary markings; differential diagnoses includes mild nonca rdiogenic pulmonary congestion, bronchitis, and developing bronchopneumonia in the appropriate clinic al setting. Clinical correlation is advised. No focal consolidative lung infiltrate, pleural effusio n, or pneumothorax is seen. The heart size and mediastinum are within normal limits. The visualized b german structures are within normal limits. IMPRESSION: 1. Mild prominence of the bronchopulmonary markings; DDX includes mild noncardiogenic pulmonary con gestion, bronchitis, and developing bronchopneumonia in the appropriate clinical setting. Clinical c orrelation is advised. 2. No focal consolidative lung infiltrate, pleural effusion, or pneumothorax seen. This document is electronically signed by Kenny Carmona MD., August 03 2018 01:27:54 PM ET
--- NOTE | 2018-08-03 15:07 | Emergency Department Report ---
ED Shortness of Breath HPI - General Chief Complaint: Dyspnea/Respdistress Stated Complaint: LEFT SIDE HEAVINESS Time Seen by Provider: 08/03/18 12:39 Source: patient Mode of arrival: Ambulatory Limitations: No Limitations - History of Present Illness Initial Comments: 67-year-old male with a past medical history DC with stent placement in April, chronic dermopathy with the EF is 35%, hypertension, diabetes, emphysema, and history of previous CVA presents to the hospital with complaints of left-sided chest pain and shortness of breath 3-4 days. Patient chronically has trouble sleeping due to shortness of breath is slightly worse the last several days. Compliant with all his medications including Lasix. He is recently started on metoprolol and feels like it is contributing to his increased cough and shortness of breath. He complains of left-sided chest pressure or radiation. Similar symptoms in the past with also history of thoracentesis during an admission in May for pleural effusions. Patient denies fever, calf tenderness, or leg edema. Ehr Trainer: Dr. Oconnor - Related Data Home Medications Medication Instructions Recorded Confirmed Last Taken Aspirin 1 tab PO DAILY 06/10/18 07/16/18 07/10/18 Esomeprazole Magnesium 40 mg PO DAILY 07/13/18 07/16/18 07/10/18 Previous Rx's Medication Instructions Recorded Last Taken Type Spironolactone [Aldactone] 25 mg PO QDAY #30 tablet 06/14/18 07/10/18 Rx AtorvaSTATin [Lipitor] 80 mg PO QHS #30 tablet 07/15/18 07/10/18 Rx Carvedilol [Coreg] 3.125 mg PO BID tablet 07/15/18 07/10/18 Rx Digoxin [Lanoxin] 0.125 mg PO DAILY@1700 #30 tablet 07/15/18 07/10/18 Rx Furosemide [Lasix TAB] 40 mg PO QDAY #30 tablet 07/15/18 07/10/18 Rx Ticagrelor [Brilinta] 90 mg PO BID #60 tablet 07/15/18 07/10/18 Rx Allergies Allergy/AdvReac Type Severity Reaction Status Date / Time amoxicillin Allergy Unknown Verified 08/03/18 12:12 Penicillins Allergy Unknown Verified 08/03/18 12:12 tetracycline Allergy Unknown Verified 08/03/18 12:12 ED Review of Systems ROS: Stated complaint: LEFT SIDE HEAVINESS Other details as noted in HPI Comment: All other systems reviewed and negative ED Past Medical Hx - Past Medical History Hx Hypertension: Yes Hx CVA: Yes Hx Heart Attack/AMI: Yes Hx Congestive Heart Failure: Yes Hx Deep Vein Thrombosis: No Additional medical history: emphysema - Surgical History Hx Coronary Stent: Yes (April 2018) Hx Pacemaker: No Hx Internal Defibrillator: No Additional Surgical History: double hernia surgery - Social History Smoking Status: Former Smoker Substance Use Type: None - Medications Home Medications: Home Medications Medication Instructions Recorded Confirmed Last Taken Type Aspirin 1 tab PO DAILY 06/10/18 07/16/18 07/10/18 History Spironolactone [Aldactone] 25 mg PO QDAY #30 tablet 06/14/18 07/16/18 07/10/18 Rx Esomeprazole Magnesium 40 mg PO DAILY 07/13/18 07/16/18 07/10/18 History AtorvaSTATin [Lipitor] 80 mg PO QHS #30 tablet 07/15/18 07/16/18 07/10/18 Rx Carvedilol [Coreg] 3.125 mg PO BID tablet 07/15/18 07/16/18 07/10/18 Rx Digoxin [Lanoxin] 0.125 mg PO DAILY@1700 #30 tablet 07/15/18 07/16/18 07/10/18 Rx Furosemide [Lasix TAB] 40 mg PO QDAY #30 tablet 07/15/18 07/16/18 07/10/18 Rx Ticagrelor [Brilinta] 90 mg PO BID #60 tablet 07/15/18 07/16/18 07/10/18 Rx ED Physical Exam - General Limitations: No Limitations - Other Other exam information: General: No limitations, patient is alert in no acute distress Head exam: Atraumatic, normocephalic Eyes exam: Normal appearance, pupils equal reactive to light, extraocular movements intact ENT: Moist mucous membrane Neck exam: Normal inspection, full range of motion, no meningismus nontender Respiratory exam: Clear to auscultation bilateral, no wheezes, rales. Minimal crackles Cardiovascular: Normal rate and rhythm, normal heart sounds Abdomen: Soft, nondistended, and nontender, with normal bowel sounds, no rebound, or guarding Extremity: Full range of motion normal inspection no deformity or tenderness or edema Back: Normal Inspection, full range of motion, no tenderness Neurologic: Alert, oriented x3, cranial nerves intact, no motor or sensory deficit Psychiatric: normal affect, normal mood Skin: Warm, dry, intact ED Course Vital Signs 08/03/18 08/03/18 12:39 13:18 Temperature 97.8 F Pulse Rate 85 Respiratory 20 16 Rate Blood Pressure 101/73 O2 Sat by Pulse 100 Oximetry - Consultations Consultation #1: 08/03/18 15:49 case d/w DR Rick. pt stable and improved and will be d/silvano ED Medical Decision Making - Lab Data Result diagrams: 08/03/18 12:58 08/03/18 12:58 Lab Results 08/03/18 08/03/18 08/03/18 Range/Units 12:58 12:58 12:58 WBC 6.9 (4.5-11.0) K/mm3 RBC 3.75 (3.65-5.03) M/mm3 Hgb 11.7 L (11.8-15.2) gm/dl Hct 35.7 (35.5-45.6) % MCV 95 H (84-94) fl MCH 31 (28-32) pg MCHC 33 (32-34) % RDW 16.7 H (13.2-15.2) % Plt Count 292 (140-440) K/mm3 Lymph % (Auto) 45.2 H (13.4-35.0) % [place] % (Auto) 10.2 H (0.0-7.3) % Eos % (Auto) 4.7 H (0.0-4.3) % Baso % (Auto) 0.8 (0.0-1.8) % Lymph # 3.1 (1.2-5.4) K/mm3 [place] # 0.7 (0.0-0.8) K/mm3 Eos # 0.3 (0.0-0.4) K/mm3 Baso # 0.1 (0.0-0.1) K/mm3 Seg Neutrophils % 39.1 L (40.0-70.0) % Seg Neutrophils # 2.7 (1.8-7.7) K/mm3 PT 14.5 (12.2-14.9) Sec. INR 1.06 (0.87-1.13) APTT 30.2 (24.2-36.6) Sec. Sodium 138 (137-145) mmol/L Potassium 4.3 (3.6-5.0) mmol/L Chloride 103.2 (98-107) mmol/L Carbon Dioxide 22 (22-30) mmol/L Anion Gap 17 mmol/L BUN 17 (9-20) mg/dL Creatinine 0.9 (0.8-1.5) mg/dL Estimated GFR > 60 ml/min BUN/Creatinine Ratio 19 % Glucose 146 H (75-100) mg/dL Calcium 9.1 (8.4-10.2) mg/dL Magnesium (1.7-2.3) mg/dL Troponin T 0.015 (0.00-0.029) ng/mL NT-Pro-B Natriuret Pep (0-900) pg/mL Digoxin (0.9-2.0) ng/mL 08/03/18 08/03/18 08/03/18 Range/Units 12:58 12:58 12:58 WBC (4.5-11.0) K/mm3 RBC (3.65-5.03) M/mm3 Hgb (11.8-15.2) gm/dl Hct (35.5-45.6) % MCV (84-94) fl MCH (28-32) pg MCHC (32-34) % RDW (13.2-15.2) % Plt Count (140-440) K/mm3 Lymph % (Auto) (13.4-35.0) % [place] % (Auto) (0.0-7.3) % Eos % (Auto) (0.0-4.3) % Baso % (Auto) (0.0-1.8) % Lymph # (1.2-5.4) K/mm3 [place] # (0.0-0.8) K/mm3 Eos # (0.0-0.4) K/mm3 Baso # (0.0-0.1) K/mm3 Seg Neutrophils % (40.0-70.0) % Seg Neutrophils # (1.8-7.7) K/mm3 PT (12.2-14.9) Sec. INR (0.87-1.13) APTT (24.2-36.6) Sec. Sodium (137-145) mmol/L Potassium (3.6-5.0) mmol/L Chloride (98-107) mmol/L Carbon Dioxide (22-30) mmol/L Anion Gap mmol/L BUN (9-20) mg/dL Creatinine (0.8-1.5) mg/dL Estimated GFR ml/min BUN/Creatinine Ratio % Glucose (75-100) mg/dL Calcium (8.4-10.2) mg/dL Magnesium 1.90 (1.7-2.3) mg/dL Troponin T (0.00-0.029) ng/mL NT-Pro-B Natriuret Pep 5323 H (0-900) pg/mL Digoxin 0.6 L (0.9-2.0) ng/mL - EKG Data -: EKG Interpreted by [place] EKG shows normal: sinus rhythm, axis (qrs 243), QRS complexes (qrsd 96), ST-T waves (no stemi) Rate: normal (88) - EKG Data When compared to previous EKG there are: no significant change - Radiology Data Radiology results: report reviewed EXAM: XR CHEST ROUTINE 2V HISTORY: Chest Pain TECHNIQUE: PA and lateral chest x- ray dated 08/03/2018 at 12:56 PM. COMPARISON: None available. FINDINGS: There is mild prominence of the bronchopulmonary markings; differential diagnoses includes mild noncardiogenic pulmonary congestion, bronchitis, and developing b ronchopneumonia in the appropriate clinical setting. Clinical correlation is advised. No focal consolidative lung infiltrate, pleural effusion, or pneumothorax is seen. The heart size and mediastinum are within normal limits. The visualized bony structures are within normal limits. IMPRESSION: 1. Mild prominence of the bronchopulmonary markings; DDX includes mild noncardiogenic pulmonary congestion, bronchitis, and developing bronchopneumonia in the appropriate clinical setting. Clinical correlation is advised. 2. No focal consolidative lung infiltrate, pleural effusion, or pneumothorax seen. HISTORY: Chest Pain TECHNIQUE: PA and lateral chest x-ray dated 08/03/2018 at 12:56 PM. COMPARISON: None available. FINDINGS: There is mild prominence of the bronchopulmonary markings; differential diagnoses includes mild noncardiogenic pulmonary congestion, bronchitis, and developing bronchopneumonia in the appropriate clinical setting. Clinical correlation is advised. No focal consolidative lung infiltrate, pleural effusion, or pneumothorax is seen. The heart size and mediastinum are within normal limits. The visualized bony structures are within normal limits. IMPRESSION: 1. Mild prominence of the bronchopulmonary markings; DDX includes mild noncardiogenic pulmonary congestion, bronchitis, and developing bronchopneumonia in the appropriate clinical setting. Clinical correlation is advised. 2. No focal consolidative lung infiltrate, pleural effusion, or pneumothorax seen. - Medical Decision Making Patient has significant urine output after IV Lasix 40 mg reports feeling a lot better. 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 Informed to discuss possible medication adjustments with his doctor. Low suspicion for PE given the lack of DVT symptoms, recurrent similar symptoms with recent negative CT angios 2. D-dimer is not a good screening test for this patient since it seems to be chronically elevated. - Differential Diagnosis CHF, DC, unstable angina, effusion, PE Critical Care Time: No Critical care attestation.: If time is entered above; I have spent that time in minutes in the direct care of this critically ill patient, excluding procedure time. ED Disposition Clinical Impression: Acute on chronic diastolic CHF (congestive heart failure) Disposition: DC-01 TO HOME OR SELFCARE Is pt being admited?: No Does the pt Need Aspirin: No Condition: Stable Instructions: Heart Failure (ED) Additional Instructions: Take the medication as prescribed. Follow up with your doctor or the clinic/doctor provided. Return if symptoms worsen as indicated by your discharge instructions Referrals: ARACELY OCONNOR MD [Staff Physician] - 2-3 Days Time of Disposition: 15:56
[2018-08-03 16:16] VITALS: BP 111/78
== END 2018-08-03 16:51 | disposition home or self-care (01) ==
LOC: ED 12:10
DX: I11.0 Hypertensive heart disease with heart failure (principal); I50.33 Acute on chronic diastolic (congestive) heart failure; Z86.73 Personal history of transient ischemic attack (TIA), and cerebral infarction without residual deficits; I25.2 Old myocardial infarction; Z95.1 Presence of aortocoronary bypass graft; Z87.891 Personal history of nicotine dependence; Z79.82 Long term (current) use of aspirin; Z88.1 Allergy status to other antibiotic agents; Z88.0 Allergy status to penicillin; Z88.8 Allergy status to other drugs, medicaments and biological substances
CPT/HCPCS: 36415; 71046; 80048; 80162; 83735; 83880; 84484; 85025; 85610; 85730; 93005; 93010; 96374; 99284; J1940

== ENCOUNTER 2018-08-13 15:23 | Emergency (ER) | payer MEDICARE ==
--- NOTE | 2018-08-13 15:37 | Emergency Department Report ---
Blank Doc - Documentation Documentation: This is a 67-year-old male that presents with SOB. Agrees to cardiac history and COPD. This initial assessment/diagnostic orders/clinical plan/treatment(s) is/are subject to change based on patient's health status, clinical progression and re- assessment by fellow clinical providers in the ED. Further treatment and workup at subsequent clinical providers discretion. Patient/guardians urged not to elope from the ED as their condition may be serious if not clinically assessed and managed. Initial orders include: 1- Patient sent to [facility] for further evaluation and treatment 2- labs 3- CXR 4- EKG
[2018-08-13] MEDS ORDERED: LASIX IV ONE (17:03)
[2018-08-13 17:10] LABS: Basophils % (Auto) 0.7 % (0.0-1.8); Eosinophils # (Auto) 0.6 K/mm3 (0.0-0.4); Eosinophils % (Auto) 12.7 % (0.0-4.3); Hematocrit 35.3 % (35.5-45.6); Hemoglobin 11.7 gm/dl (11.8-15.2); Lymphocytes # (Auto) 1.6 K/mm3 (1.2-5.4); Lymphocytes % (Auto) 33.1 % (13.4-35.0); Mean Corpuscular HGB Conc 33 % (32-34); Mean Corpuscular Volume 96 fl (84-94); Monocytes # (Auto) 0.5 K/mm3 (0.0-0.8); Monocytes % (Auto) 9.6 % (0.0-7.3); Platelet Count 267 K/mm3 (140-440); Red Blood Count 3.69 M/mm3 (3.65-5.03); Red Cell Distribution Width 18.1 % (13.2-15.2)
[2018-08-13 17:18] LABS: INR 1.1 (0.87-1.13)
--- NOTE | 2018-08-13 17:18 | XRay Report ---
PROCEDURE: XR CHEST ROUTINE 2V TECHNIQUE: Chest, frontal and lateral views HISTORY: Dyspnea COMPARISONS: 08/03/2018 FINDINGS: There is again nonspecific prominence of the perihilar interstitial markings without definite bronchi al wall thickening. This interstitial prominence is slightly decreased from comparison exam. There is no focal pulmonary air space consolidation. No evidence of pleural effusion. No radiographically visible pneumothorax. The cardiac silhouette size and pulmonary vascularity are normal. No evidence of acute skeletal pathology. IMPRESSION: Interstitial prominence slightly decreased from prior exam. Findings may again reflect small airways disease, or bronchitis. The differential includes underlying reactive airways disease, atypical inter stitial pneumonitis, or viral lower airways disease. If chronic, this may represent interstitial scar ring. This document is electronically signed by Sergo Morales MD., August 13 2018 05:16:43 PM ET
[2018-08-13 17:19] LABS: Partial Thromboplastin Time 30.9 Sec. (24.2-36.6)
[2018-08-13 17:33] LABS: BUN/Creatinine Ratio 16; Blood Urea Nitrogen 14 mg/dL (9-20); Calcium 9.3 mg/dL (8.4-10.2); Hemolysis Index 0
--- NOTE | 2018-08-13 19:51 | Emergency Department Report ---
<NKECHI PISANO - Last Filed: 08/13/18 19:46> ED Shortness of Breath HPI - General Chief Complaint: Dyspnea/Respdistress Stated Complaint: ANTONIETTA Time Seen by Provider: 08/13/18 15:36 Source: patient Mode of arrival: Ambulatory Limitations: No Limitations - History of Present Illness Initial Comments: Patient is a 67-year-old -[place] male with past medical history of congestive heart failure is presenting with shortness of breath. Patient states for the last 2-3 days he's had worsening shortness of breath and orthopnea. Patient also started earlier today states that he has some pleuritic left-sided chest heaviness. Patient stated was a heavy sensation was worse when he took a deep breath. He states this is started to resolve. Patient's exercise tolerance is decreased and he is much more short of breath than his baseline. Patient took an extra Lasix prior to arrival and has artery started to diurese. - Related Data Home Medications Medication Instructions Recorded Confirmed Last Taken Aspirin 1 tab PO DAILY 06/10/18 07/16/18 07/10/18 Esomeprazole Magnesium 40 mg PO DAILY 07/13/18 07/16/18 07/10/18 Previous Rx's Medication Instructions Recorded Last Taken Type Spironolactone [Aldactone] 25 mg PO QDAY #30 tablet 06/14/18 07/10/18 Rx AtorvaSTATin [Lipitor] 80 mg PO QHS #30 tablet 07/15/18 07/10/18 Rx Carvedilol [Coreg] 3.125 mg PO BID tablet 07/15/18 07/10/18 Rx Digoxin [Lanoxin] 0.125 mg PO DAILY@1700 #30 tablet 07/15/18 07/10/18 Rx Furosemide [Lasix TAB] 40 mg PO QDAY #30 tablet 07/15/18 07/10/18 Rx Ticagrelor [Brilinta] 90 mg PO BID #60 tablet 07/15/18 07/10/18 Rx Allergies Allergy/AdvReac Type Severity Reaction Status Date / Time amoxicillin Allergy Unknown Verified 08/03/18 12:12 Penicillins Allergy Unknown Verified 08/03/18 12:12 tetracycline Allergy Unknown Verified 08/03/18 12:12 ED Review of Systems Comment: All other systems reviewed and negative ED Past Medical Hx - Past Medical History Previous Medical History?: Yes Hx Hypertension: Yes Hx CVA: Yes Hx Heart Attack/AMI: Yes Hx Congestive Heart Failure: Yes Hx Deep Vein Thrombosis: No Additional medical history: emphysema - Surgical History Past Surgical History?: Yes Hx Coronary Stent: Yes (April 2018) Hx Pacemaker: No Hx Internal Defibrillator: No Additional Surgical History: double hernia surgery - Social History Smoking Status: Former Smoker Substance Use Type: None - Medications Home Medications: Home Medications Medication Instructions Recorded Confirmed Last Taken Type Aspirin 1 tab PO DAILY 06/10/18 07/16/18 07/10/18 History Spironolactone [Aldactone] 25 mg PO QDAY #30 tablet 06/14/18 07/16/18 07/10/18 Rx Esomeprazole Magnesium 40 mg PO DAILY 07/13/18 07/16/18 07/10/18 History AtorvaSTATin [Lipitor] 80 mg PO QHS #30 tablet 07/15/18 07/16/18 07/10/18 Rx Carvedilol [Coreg] 3.125 mg PO BID tablet 07/15/18 07/16/18 07/10/18 Rx Digoxin [Lanoxin] 0.125 mg PO DAILY@1700 #30 tablet 07/15/18 07/16/18 07/10/18 Rx Furosemide [Lasix TAB] 40 mg PO QDAY #30 tablet 07/15/18 07/16/18 07/10/18 Rx Ticagrelor [Brilinta] 90 mg PO BID #60 tablet 07/15/18 07/16/18 07/10/18 Rx ED Physical Exam - General Limitations: No Limitations General appearance: alert, in no apparent distress - Head Head exam: Present: atraumatic, normocephalic - Eye Eye exam: Present: normal appearance - ENT ENT exam: Present: mucous membranes moist - Neck Neck exam: Present: normal inspection - Respiratory Respiratory exam: Present: normal lung sounds bilaterally, rales (mild bilateral base). Absent: respiratory distress, wheezes, rhonchi - Cardiovascular Cardiovascular Exam: Present: regular rate, normal rhythm, normal heart sounds. Absent: systolic murmur, diastolic murmur, rubs, gallop - GI/Abdominal GI/Abdominal exam: Present: soft, normal bowel sounds. Absent: distended, tenderness, guarding, rebound, rigid - Rectal Rectal exam: Present: deferred - Extremities Exam Extremities exam: Present: normal inspection - Back Exam Back exam: Present: normal inspection - Neurological Exam Neurological exam: Present: alert, oriented X3 - Psychiatric Psychiatric exam: Present: normal affect, normal mood - Skin Skin exam: Present: warm, dry, intact, normal color. Absent: rash ED Course - Reevaluation(s) Reevaluation #1: 08/13/18 19:50 Patient is a 67-year-old [place] male who per chest x-ray does have some pulmonary vascular congestion consistent with acute heart failure exacerbation which is mild. Patient is diuresing here in emergency department. Patient's BNP was elevated. Patient also had elevated d-dimer and because of his episode of left sided pleuritic chest discomfort CT of the chest has been ordered. ED Medical Decision Making - Lab Data Result diagrams: 08/13/18 16:20 08/13/18 16:20 Lab Results 08/13/18 08/13/18 08/13/18 Range/Units 16:20 16:20 16:20 WBC 4.9 (4.5-11.0) K/mm3 RBC 3.69 (3.65-5.03) M/mm3 Hgb 11.7 L (11.8-15.2) gm/dl Hct 35.3 L (35.5-45.6) % MCV 96 H (84-94) fl MCH 32 (28-32) pg MCHC 33 (32-34) % RDW 18.1 H (13.2-15.2) % Plt Count 267 (140-440) K/mm3 Lymph % (Auto) 33.1 (13.4-35.0) % [place] % (Auto) 9.6 H (0.0-7.3) % Eos % (Auto) 12.7 H (0.0-4.3) % Baso % (Auto) 0.7 (0.0-1.8) % Lymph # 1.6 (1.2-5.4) K/mm3 [place] # 0.5 (0.0-0.8) K/mm3 Eos # 0.6 H (0.0-0.4) K/mm3 Baso # 0.0 (0.0-0.1) K/mm3 Seg Neutrophils % 43.9 (40.0-70.0) % Seg Neutrophils # 2.2 (1.8-7.7) K/mm3 PT 14.9 (12.2-14.9) Sec. INR 1.10 (0.87-1.13) APTT 30.9 (24.2-36.6) Sec. D-Dimer (0-234) ng/mlDDU Sodium 141 (137-145) mmol/L Potassium 4.2 (3.6-5.0) mmol/L Chloride 102.9 (98-107) mmol/L Carbon Dioxide 25 (22-30) mmol/L Anion Gap 17 mmol/L BUN 14 (9-20) mg/dL Creatinine 0.9 (0.8-1.5) mg/dL Estimated GFR > 60 ml/min BUN/Creatinine Ratio 16 % Glucose 106 H (75-100) mg/dL Calcium 9.3 (8.4-10.2) mg/dL Troponin T < 0.010 (0.00-0.029) ng/mL NT-Pro-B Natriuret Pep (0-900) pg/mL 08/13/18 08/13/18 Range/Units 17:03 17:03 WBC (4.5-11.0) K/mm3 RBC (3.65-5.03) M/mm3 Hgb (11.8-15.2) gm/dl Hct (35.5-45.6) % MCV (84-94) fl MCH (28-32) pg MCHC (32-34) % RDW (13.2-15.2) % Plt Count (140-440) K/mm3 Lymph % (Auto) (13.4-35.0) % [place] % (Auto) (0.0-7.3) % Eos % (Auto) (0.0-4.3) % Baso % (Auto) (0.0-1.8) % Lymph # (1.2-5.4) K/mm3 [place] # (0.0-0.8) K/mm3 Eos # (0.0-0.4) K/mm3 Baso # (0.0-0.1) K/mm3 Seg Neutrophils % (40.0-70.0) % Seg Neutrophils # (1.8-7.7) K/mm3 PT (12.2-14.9) Sec. INR (0.87-1.13) APTT (24.2-36.6) Sec. D-Dimer 786.7 H (0-234) ng/mlDDU Sodium (137-145) mmol/L Potassium (3.6-5.0) mmol/L Chloride (98-107) mmol/L Carbon Dioxide (22-30) mmol/L Anion Gap mmol/L BUN (9-20) mg/dL Creatinine (0.8-1.5) mg/dL Estimated GFR ml/min BUN/Creatinine Ratio % Glucose (75-100) mg/dL Calcium (8.4-10.2) mg/dL Troponin T (0.00-0.029) ng/mL NT-Pro-B Natriuret Pep 5826 H (0-900) pg/mL - EKG Data -: EKG Interpreted by Dc EKG shows normal: sinus rhythm, axis, intervals, QRS complexes Rate: normal - EKG Data Interpretation: other (patient with Q waves inferiorly as well as laterally) - Radiology Data [facility] [address] [place] [address] XRay Report Signed Patient: CASSIDY BRANDON MR#: [id number] : 1950 Acct:[id number] Age/Sex: 67 / M ADM Date: 08/13/18 Loc: ED Attending Dr: Ordering Physician: GREER BENTON NP Date of Service: 08/13/18 Procedure(s): XR chest routine 2V Accession Number(s): [id number] cc: GREER BENTON NP Fluoro Time In Minutes: PROCEDURE: XR CHEST ROUTINE 2V TECHNIQUE: Chest, frontal and lateral views HISTORY: Dyspnea COMPARISONS: 08/03/2018 FINDINGS: There is again n onspecific prominence of the perihilar interstitial markings without definite bronchial wall thickening. This interstitial prominence is slightly decreased from comparison exam. There is no focal pulmonary air space consolidation. No evidence of pleural effusion. No radiographically visible pneumothorax. The cardiac silhouette size and pulmonary vascularity are normal. No evidence of acute skeletal pathology. IMPRESSION: Interstitial prominence slightly decreased from prior exam. Findings may again reflect small airways disease, or bronchitis. The differential includes underlying reactive airways disease, atypical interstitial pneumonitis, or viral lower airways disease. If chronic, this may represent interstitial scarring. This document is electronically signed by Sergo Morales MD., August 13 2018 05:16:43 PM ET Transcribed By: BAL Dictated By: SERGO MORALES MD Electronically Authenticated By: SERGO MORALES MD Signed Date/Time: 08/13/181717 DD/ 15 TD/TT: 08/13/181615 ED Disposition Clinical Impression: Acute on chronic congestive heart failure Disposition: DC-01 TO HOME OR SELFCARE Condition: Stable Instructions: Heart Failure (ED) Additional Instructions: Continue your medication as prescribed. Follow up with your doctor or the clinic/doctor provided. Return if symptoms worsen as indicated by your discharge instructions Referrals: ARACELY HARRINGTON MD [Staff Physician] - 3-5 Days <ULISES KELLOGG - Last Filed: 08/13/18 20:50> ED Review of Systems ROS: Stated complaint: ANTONIETTA Other details as noted in HPI ED Course Vital Signs 08/13/18 08/13/18 08/13/18 15:36 18:32 18:33 Temperature 97.8 F 97.7 F Pulse Rate 80 80 Respiratory 20 26 H 26 H Rate Blood Pressure 105/60 Blood Pressure 116/79 [Left] O2 Sat by Pulse 98 98 98 Oximetry - Reevaluation(s) Reevaluation #2: 08/13/18 20:47 pt states he is feeling better with diuresis. Respiratory rate is normal. CT ch est angio without pe and other previous findings improving, will d/c with cardiology follow up ED Medical Decision Making - Lab Data Result diagrams: 08/13/18 16:20 08/13/18 16:20 - Radiology Data Radiology results: report reviewed PROCEDURE: CT ANGIO CHEST TECHNIQUE: Computerized tomographic angiography of the chest was performed after the IV injection of iodinated nonionic contrast including image processing. The image data was postprocessed using 2-dimensional multiplanar reformatted (MPR) and 3-dimensional (MIP and/or volume rendered) techniques. Automated exposure control, adjustment of mA and/or kV according to patient size, or iterative reconstruction dose optimization techniques were utilized. CT DOSE LENGTH PRODUCT: 489.4 mGycm HISTORY: sob with elevated ddimer COMPARISONS: July 13, 2018. FINDINGS: Mild degree infiltrative changes are noted involving lateral segment right lower lobe which appear to have slightly improved in the interval. There are no new infiltrates. Paraseptal emphysematous changes are noted involving bilateral lungs. There are bilateral pleural effusions mild degree right more than left. Hilar structures are within normal l imits. Bilateral pulmonary arteries and their branches demonstrate normal opacification without filling defects. Aorta is of normal caliber. Mild degree pretracheal and subcarinal lymphadenopathy is identified. Subcarinal lymph node measures 2.3 cm in short axis. Coronary arterial calcification is noted. IMPRESSION: mild degree right lower lobe infiltrates with slight interval improvement Mild degree bilateral pleural effusions without interval change No evidence of pulmonary embolus Pretracheal and subcarinal adenopathy which appears to be unchanged Coronary arterial calcification Paraseptal emphysematous changes Critical Care Time: No Critical care attestation.: If time is entered above; I have spent that time in minutes in the direct care of this critically ill patient, excluding procedure time. ED Disposition Is pt being admited?: No Does the pt Need Aspirin: No Time of Disposition: 20:50
--- NOTE | 2018-08-13 20:43 | Cat Scan Report ---
PROCEDURE: CT ANGIO CHEST TECHNIQUE: Computerized tomographic angiography of the chest was performed after the IV injection of iodinated nonionic contrast including image processing. The image data was postprocessed using 2-di mensional multiplanar reformatted (MPR) and 3-dimensional (MIP and/or volume rendered) techniques. Au tomated exposure control, adjustment of mA and/or kV according to patient size, or iterative reconstr uction dose optimization techniques were utilized. CT DOSE LENGTH PRODUCT: 489.4 mGycm HISTORY: sob with elevated ddimer COMPARISONS: July 13, 2018. FINDINGS: Mild degree infiltrative changes are noted involving lateral segment right lower lobe which appear to have slightly improved in the interval. There are no new infiltrates. Paraseptal emphysematous ford es are noted involving bilateral lungs. There are bilateral pleural effusions mild degree right more than left. Hilar structures are within normal limits. Bilateral pulmonary arteries and their branches demonstrate normal opacification without filling defects. Aorta is of normal caliber. Mild degree pr etracheal and subcarinal lymphadenopathy is identified. Subcarinal lymph node measures 2.3 cm in shor t axis. Coronary arterial calcification is noted. IMPRESSION: mild degree right lower lobe infiltrates with slight interval improvement Mild degree bilateral pleural effusions without interval change No evidence of pulmonary embolus Pretracheal and subcarinal adenopathy which appears to be unchanged Coronary arterial calcification Paraseptal emphysematous changes This document is electronically signed by Erick Du MD., August 13 2018 08:41:29 PM ET
[2018-08-13 21:07] VITALS: BP 102/61
== END 2018-08-13 21:07 | disposition home or self-care (01) ==
LOC: ED 15:23
DX: I11.0 Hypertensive heart disease with heart failure (principal); I50.9 Heart failure, unspecified; I25.2 Old myocardial infarction; J43.9 Emphysema, unspecified; Z95.5 Presence of coronary angioplasty implant and graft; Z86.73 Personal history of transient ischemic attack (TIA), and cerebral infarction without residual deficits; Z87.891 Personal history of nicotine dependence; Z88.0 Allergy status to penicillin; Z88.1 Allergy status to other antibiotic agents
CPT/HCPCS: 36415; 71046; 71275; 80048; 83880; 84484; 85025; 85379; 85610; 85730; 93005; 93010; 96374; 99285; J1940; Q9967